=== PATIENT | male | born 1965 | race Caucasian/White ===

== ENCOUNTER → 2016-02-24 | Outpatient (CLI) | payer BC ==
[2016-02-26 14:31] LABS: PSA TOTAL 0.4 ng/mL (0.0-4.0)
== END ==
LOC: M WUC 17:30
PROVIDERS: ATTEND Nurse Practitioner Family
DX: Z12.5 Encounter for screening for malignant neoplasm of prostate (principal)

== ENCOUNTER → 2017-04-29 | Outpatient (CLI) | payer BC ==
[2017-04-29 08:50] LABS: BASO % 0.6 % (0.0-1.0); EOS # 0.1 10^3/uL (0.0-0.50); EOS % 1.6 % (0.0-3.0); HEMATOCRIT 43.2 % (42.0-52.0); HEMOGLOBIN 15.3 g/dl (14.0-18.0); IMMATURE GRANULOCYTE % 0.6 % (0-3.0); LYMPH # 1.9 10^3/uL (1.5-4.5); LYMPH % 30.6 % (24.0-44.0); MEAN CORPUSCULAR HEMOGLOBIN 31.2 pg (27.0-33.0); MEAN CORPUSCULAR HGB CONC 35.4 g/dl (32.0-36.5); MEAN CORPUSCULAR VOLUME 88.2 fl (80.0-96.0); MONO # 0.5 10^3/uL (0.0-0.8); MONO % 8.6 % (0.0-5.0); NEUTROPHILS # 3.6 10^3/uL (1.8-7.7); PLATELET COUNT, AUTOMATED 240 10^3/uL (150-450); RED CELL DISTRIBUTION WIDTH 12.4 % (11.5-14.5); WHITE BLOOD COUNT 6.3 10^3/uL (4.0-10.0)
[2017-04-29 09:24] LABS: ALBUMIN 3.8 GM/DL (3.2-5.2); ALBUMIN/GLOBULIN RATIO 1.36 (1.00-1.93); ALKALINE PHOSPHATASE 82 U/L (45-117); ALT/SGPT 44 U/L (12-78); ANION GAP 7 MEQ/L (8-16); AST/SGOT 26 U/L (7-37); BILIRUBIN,TOTAL 1.1 MG/DL (0.2-1.0); BLOOD UREA NITROGEN 22 MG/DL (7-18); CALCIUM LEVEL 8.6 MG/DL (8.5-10.1); CARBON DIOXIDE LEVEL 28 MEQ/L (21-32); CHLORIDE LEVEL 108 MEQ/L (98-107); CHOLESTEROL LEVEL 190 MG/DL (<200); CHOLESTEROL RISK RATIO 4.523 (<5); CREATININE FOR GFR 1.08 MG/DL (0.70-1.30); GLOMERULAR FILTRATION RATE > 60.0 (>60); GLUCOSE, FASTING 109 MG/DL (70-100); HDL CHOLESTEROL 42 MG/DL (>40); LDL CHOLESTEROL 125.4 MG/DL (<100); NON-HDL-C 148 MG/DL; POTASSIUM SERUM 4.5 MEQ/L (3.5-5.1); SODIUM LEVEL 143 MEQ/L (136-145); TOTAL PROTEIN 6.6 GM/DL (6.4-8.2); TRIGLYCERIDES LEVEL 113 MG/DL (<150)
[2017-04-30 15:19] LABS: PSA TOTAL 0.4 ng/mL (0.0-4.0)
== END ==
LOC: M WUC 08:04
DX: I10 Essential (primary) hypertension (principal); E78.5 Hyperlipidemia, unspecified; Z12.5 Encounter for screening for malignant neoplasm of prostate
CPT/HCPCS: 80053

== ENCOUNTER → 2017-08-23 | Outpatient (CLI) | payer BC | LOC: M ADAMS 08:45 | DX: S20.212A Contusion of left front wall of thorax, initial encounter (principal); X58.XXXA Exposure to other specified factors, initial encounter; Y92.89 Other specified places as the place of occurrence of the external cause | CPT/HCPCS: 71101 ==

== ENCOUNTER → 2018-04-05 | Outpatient (CLI) | payer BC | LOC: M ADAMS 17:31 | PROVIDERS: ATTEND Nurse Practitioner Family | DX: Z12.5 Encounter for screening for malignant neoplasm of prostate (principal); Z53.9 Procedure and treatment not carried out, unspecified reason ==

== ENCOUNTER → 2018-04-05 | Outpatient (REF) | payer BC ==
[2018-04-07 15:05] LABS: PSA TOTAL 0.5 ng/mL (0.0-4.0)
== END ==
LOC: M LABDRWAD 19:09
PROVIDERS: ATTEND Nurse Practitioner Family
DX: Z12.5 Encounter for screening for malignant neoplasm of prostate (principal)

== ENCOUNTER → 2018-07-20 | Outpatient (CLI) | payer BC ==
--- NOTE | 2018-07-20 21:29 | REP ---
Clinical: Dorsalgia Technique: AP and lateral views of the thoracic and lumbar spine. Six views total. Findings: The thoracic spine demonstrates normal alignment and kyphosis without acute fracture / compression injury, subluxation or significant degenerative changes. The lumbar spine and demonstrates moderate multilevel degenerative changes including endplate sclerosis, marginal spurring, disc space narrowing and hypertrophic facet changes. No acute fracture / compression injury. Minimal retrolisthesis of approximately 2-3 mm suggested at the L2-3 level and the L4-5 level. Impression: 1. Normal thoracic spine. 2. Moderate degenerative spondylosis involving the lumbar spine. Electronically Signed by Robert Gilmore MD 07/20/2018 09:20 P
== END ==
LOC: M ADAMS 18:31
PROVIDERS: ATTEND Nurse Practitioner Family
DX: M47.896 Other spondylosis, lumbar region (principal); M54.9 Dorsalgia, unspecified

== ENCOUNTER → 2019-12-22 | Outpatient (REF) | payer BC | LOC: M LABDRWAD 12:12 | PROVIDERS: ATTEND Family Medicine | DX: Z12.5 Encounter for screening for malignant neoplasm of prostate (principal) ==

== ENCOUNTER → 2020-02-01 | Outpatient (REF) | payer OTHER | LOC: M LABSMT 13:17 → M SFHCADAM 13:20 | PROVIDERS: ATTEND Nurse Practitioner Women's Health | DX: N50.89 Other specified disorders of the male genital organs (principal) ==

== ENCOUNTER 2020-12-09 09:10 | Emergency (ER) | payer BC, OTHER ==
[~2020-12-09] VITALS: Ht 177.8 cm; Wt 107.2 kg
--- OUTSIDE RECORDS SUMMARY | 2020-12-09 09:19 | CCD ---
Author Author [facility] Organization [facility] Address Unknown Phone Unavailable Care Team Providers Care Release Coordinator Name Role Phone Maria Victoria Noland MD Unavailable Unavailable Nuzhat, Maria Victoria Canales MD Unavailable Unavailable Nuzhat, Maria Victoria Canales MD Unavailable Unavailable Nuzhat, Maria Victoria Canales MD Unavailable Unavailable Nuzhat, Maria Victoria Canales MD Unavailable Unavailable Nuzhat, Maria Victoria Canales MD Unavailable Unavailable Nuzhat, Maria Victoria Canales MD Unavailable Unavailable Nuzhat, Maria Victoria Canales MD Unavailable Unavailable Nuzhat, Maria Victoria Canales MD Unavailable Unavailable Nuzhat, Maria Victoria Canales MD Unavailable Unavailable Nuzhat, Maria Victoria Canales MD Unavailable Unavailable Nuzhat, Maria Victoria Canales MD Unavailable Unavailable Nuzhat, Maria Victoria Canales MD Unavailable Unavailable Nuzhat, Maria Victoria Canales MD Unavailable Unavailable Nuzhat, Maria Victoria Canales MD Unavailable Unavailable Nuzhat, Maria Victoria Canales MD Unavailable Unavailable Nuzhat, Maria Victoria Canales MD Unavailable Unavailable Nuzhat, Maria Victoria Canales MD Unavailable Unavailable Nuzhat, Maria Victoria Canales MD Unavailable Unavailable Nuzhat, Maria Victoria Canales MD Unavailable Unavailable Nuzhat, Maria Victoria Canales MD Unavailable Unavailable Nuzhat, Maria Victoria Canales MD Unavailable Unavailable Nuzhat, Maria Victoria Canales MD Unavailable Unavailable Nuzhat, Maria Victoria Canales MD Unavailable Unavailable Nuzhat, Maria Victoria Canales MD Unavailable Unavailable Nuzhat, Maria Victoria Canales MD Unavailable Unavailable Nuzhat, Maria Victoria Canales MD Unavailable Unavailable Nuzhat, Maria Victoria Canales MD Unavailable Unavailable Nuzhat, Maria Victoria Canales MD Unavailable Unavailable Nuzhat, Maria Victoria Canales MD Unavailable Unavailable Nuzhat, Maria Victoria Canales MD Unavailable Unavailable Nuzhat, Maria Victoria Canales MD Unavailable Unavailable Nuzhat, A Parker MD Unavailable Unavailable Nuzhat, A Parker MD Unavailable Unavailable Nuzhat, A Parker MD Unavailable Unavailable Nuzhat, A Parker MD Unavailable Unavailable Nuzhat, A Parker MD Unavailable Unavailable Nuzhat, A Parker MD Unavailable Unavailable Nuzhat, A Parker MD Unavailable Unavailable Nuzhat, A Parker MD Unavailable Unavailable Nuzhat, A Parker MD Unavailable Unavailable Nuzhat, A Parker MD Unavailable Unavailable Nuzhat, A Parker MD Unavailable Unavailable Nuzhat, A Parker MD Unavailable Unavailable Nuzhat, A Parker MD Unavailable Unavailable Nuzhat, A Parker MD Unavailable Unavailable Nuzhat, A Parker MD Unavailable Unavailable Nuzhat, A Parker MD Unavailable Unavailable Nuzhat, A Parker MD Unavailable Unavailable Nuzhat, A Parker MD Unavailable Unavailable Nuzhat, A Parker MD Unavailable Unavailable Nuzhat, A Parker MD Unavailable Unavailable Nuzhat, A Parker MD Unavailable Unavailable Nuzhat, A Parker MD Unavailable Unavailable Nuzhat, A Parker MD Unavailable Unavailable Nuzhat, A Parker MD Unavailable Unavailable Nuzhat, A Parker MD Unavailable Unavailable Nuzhat, A Parker MD Unavailable Unavailable Nuzhat, A Parker MD Unavailable Unavailable Nuzhat, A Parker MD Unavailable Unavailable Nuzhat, A Parker MD Unavailable Unavailable Nuzhat, A Parker MD Unavailable Unavailable Nuzhat, A Parker MD Unavailable Unavailable Nuzhat, A Parker MD Unavailable Unavailable Nuzhat, A Parker MD Unavailable Unavailable Nuzhat, A Parker MD Unavailable Unavailable Nuzhat, A Parker MD Unavailable Unavailable Nuzhat, A Parker MD Unavailable Unavailable Nuzhat, A Parker MD Unavailable Unavailable Nuzhat, A Parker MD Unavailable Unavailable Nuzhat, A Parker MD Unavailable Unavailable Nuzhat, A Parker MD Unavailable Unavailable Nuzhat, A Parker MD Unavailable Unavailable Nuzhat, A Parker MD Unavailable Unavailable Nuzhat, A Parker MD Unavailable Unavailable Nuzhat, A Parker MD Unavailable Unavailable Nuzhat, A Parker MD Unavailable Unavailable Nuzhat, A Parker MD Unavailable Unavailable Nuzhat, A Parker MD Unavailable Unavailable Nuzhat, A Parker MD Unavailable Unavailable Nuzhat, A Parker MD Unavailable Unavailable Nuzhat, A Parker MD Unavailable Unavailable Nuzhat, A Parker MD Unavailable Unavailable Nuzhat, A Parker MD Unavailable Unavailable Nuzhat, A Parker MD Unavailable Unavailable Darin Zhang MD Unavailable Unavailable Darin Zhang MD Unavailable Unavailable Darin Zhang MD Unavailable Unavailable Chitnis, S Subhanir MD Unavailable Unavailable Chitnis, S Subhanir MD Unavailable Unavailable Chitnis, S Subhanir MD Unavailable Unavailable Chitnis, S Subhanir MD Unavailable Unavailable Chitnis, S Subhanir MD Unavailable Unavailable Nuzhat, A Parker MD Unavailable Unavailable Nuzhat, A Parker MD Unavailable Unavailable Nuzhat, A Parker MD Unavailable Unavailable Nuzhat, A Parker MD Unavailable Unavailable Nuzhat, A Parker MD Unavailable Unavailable Nuzhat, A Parker MD Unavailable Unavailable Nuzhat, A Parker MD Unavailable Unavailable Nuzhat, A Parker MD Unavailable Unavailable Nuzhat, A Parker MD Unavailable Unavailable Nuzhat, A Parker MD Unavailable Unavailable Nuzhat, A Parker MD Unavailable Unavailable Nuzhat, A Parker MD Unavailable Unavailable Nuzhat, A Parker MD Unavailable Unavailable Nuzhat, A Parker MD Unavailable Unavailable Nuzhat, A Parker MD Unavailable Unavailable Nuzhat, A Parker MD Unavailable Unavailable Nuzhat, A Parker MD Unavailable Unavailable Nuzhat, A Parker MD Unavailable Unavailable Nuzhat, A Parker MD Unavailable Unavailable Nuzhat, A Parker MD Unavailable Unavailable Nuzhat, A Parker MD Unavailable Unavailable Nuzhat, A Parker MD Unavailable Unavailable Nuzhat, A Parker MD Unavailable Unavailable Nuzhat, A Parker MD Unavailable Unavailable Nuzhat, A Parker MD Unavailable Unavailable Nuzhat, A Parker MD Unavailable Unavailable Nuzhat, A Parker MD Unavailable Unavailable Nuzhat, A Parker MD Unavailable Unavailable Nuzhat, A Parker MD Unavailable Unavailable Nuzhat, A Parker MD Unavailable Unavailable Nuzhat, A Parker MD Unavailable Unavailable Nuzhat, A Parker MD Unavailable Unavailable Nuzhat, A Parker MD Unavailable Unavailable Nuzhat, A Parker MD Unavailable Unavailable Nuzhat, A Parker MD Unavailable Unavailable Nuzhat, A Parker MD Unavailable Unavailable Nuzhat, A Parker MD Unavailable Unavailable Nuzhat, A Parker MD Unavailable Unavailable Nuzhat, A Parker MD Unavailable Unavailable Nuzhat, A Parker MD Unavailable Unavailable Nuzhat, A Parker MD Unavailable Unavailable Nuzhat, A Parker MD Unavailable Unavailable Nuzhat, A Parker MD Unavailable Unavailable Nuzhat, A Parker MD Unavailable Unavailable Nuzhat, A Parker MD Unavailable Unavailable Nuzhat, A Parker MD Unavailable Unavailable Nuzhat, A Parker MD Unavailable Unavailable Nuzhat, A Parker MD Unavailable Unavailable Nuzhat, A Parker MD Unavailable Unavailable Nuzhat, A Parker MD Unavailable Unavailable Nuzhat, A Parker MD Unavailable Unavailable Nuzhat, A Parker MD Unavailable Unavailable Nuzhat, A Parker MD Unavailable Unavailable Nuzhat, A Parker MD Unavailable Unavailable Nuzhat, A Parker MD Unavailable Unavailable Nuzhat, A Parker MD Unavailable Unavailable Nuzhat, A Parker MD Unavailable Unavailable Nuzhat, A Parker MD Unavailable Unavailable Nuzhat, A Parker MD Unavailable Unavailable Nuzhat, A Parker MD Unavailable Unavailable Nuzhat, A Parker MD Unavailable Unavailable Nuzhat, A Parker MD Unavailable Unavailable Nuzhat, A Parker MD Unavailable Unavailable Nuzhat, A Parker MD Unavailable Unavailable Nuzhat, A Parker MD Unavailable Unavailable Nuzhat, A Parker MD Unavailable Unavailable Nuzhat, A Parker MD Unavailable Unavailable Nuzhat, A Parker MD Unavailable Unavailable Nuzhat, A Parker MD Unavailable Unavailable Nuzhat, A Parker MD Unavailable Unavailable Nuzhat, A Parker MD Unavailable Unavailable Nuzhat, A Parker MD Unavailable Unavailable Nuzhat, A Parker MD Unavailable Unavailable Nuzhat, A Parker MD Unavailable Unavailable Nuzhat, A Parker MD Unavailable Unavailable Nuzhat, A Parker MD Unavailable Unavailable Nuzhat, A Parker MD Unavailable Unavailable Nuzhat, A Parker MD Unavailable Unavailable Nuzhat, A Parker MD Unavailable Unavailable Nuzhat, A Parker MD Unavailable Unavailable Nuzhat, A Parker MD Unavailable Unavailable Nuzhat, A Parker MD Unavailable Unavailable Nuzhat, A Parker MD Unavailable Unavailable Nuzhat, A Parker MD Unavailable Unavailable Nuzhat, A Parker MD Unavailable Unavailable Re-disclosure Warning The records that you are about to access may contain information from federally-assisted alcohol or drug abuse programs. If such information is present, then the following federally mandated warning applies: This information has been disclosed to you from records protected by federal confidentiality rules (42 CFR part 2). The federal rules prohibit you from making any further disclosure of this information unless further disclosure is expressly permitted by the written consent of the person to whom it pertains or as otherwise permitted by 42 CFR part 2. A general authorization for the release of medical or other information is NOT sufficient for this purpose. The Federal rules restrict any use of the information to criminally investigate or prosecute any alcohol or drug abuse patient.The records that you are about to access may contain highly sensitive health information, the redisclosure of which is protected by Article 27-F of the [facility] Public Health law. If you continue you may have access to information: Regarding HIV / AIDS; Provided by facilities licensed or operated by the [facility] Office of Mental Health; or Provided by the [facility] Office for People With Developmental Disabilities. If such information is present, then the following [facility] mandated warning applies: This information has been disclosed to you from confidential records which are protected by state law. State law prohibits you from making any further disclosure of this information without the specific written consent of the person to whom it pertains, or as otherwise permitted by law. Any unauthorized further disclosure in violation of state law may result in a fine or group home sentence or both. A general authorization for the release of medical or other information is NOT sufficient authorization for further disc losure. Family History Family Member Name Family Member Gender Family Member Status Date o f Status Description Data Source(s) Unknown Unknown Problem [facility] ([facility]) mother Encounters Encounter Providers Location Date Indications Data Source(s ) Outpatient Attender: Parker Begum 08/05/2020 03:00:00 P M EDT [facility] ([facility]) Outpatient [address] [facility] [id number] 04/29/2020 12:00:00 AM EDT eCW1 ([facility]) Outpatient Admitter: Parker Noland MDReferrer: Parker Noland MD MOB-MOB.PAT 04/08/2020 08:07:07 AM EST - 04/08/2020 08:22:51 AM EST [facility] Outpatient Attender: Parker Harmon rona: Nancy Zhang MDAdmitter: Parker Noland MD [email or web address] 04/03/2020 08:05:11 AM EST - 04/12/2020 01:48:00 PM EST [facility] Patient discharged. Outpatient Attender: Parker Begum 03/29/2020 02:00:00 P M EST [facility]) Unknown [address] [facility] [id number] 03/26/2020 12:00:00 AM EST eCW1 ([facility]) Unknown [address] [facility] [place] [address] 02/12/2020 12:00:00 AM EST eCW1 ([facility]) [place] [address] [facility] [place] [address] 01/31/2020 12:00:00 AM EST eCW1 ([facility]) Immunizations Vaccine Date Status Description Data Source(s) COVID-19 VACCINE Pfizer 05/15/2020 12:00:00 AM EDT completed [facility] Vaccine Series Complete: YESThis Data wa s Submitted to [facility]. COVID-19 VACCINE Pfizer 04/24/2020 12:00:00 AM EST completed [place] Vaccine Series Complete: NOThis Data was Submitted to [facility]. Medications Medication Brand Name Start Date Product Form Dose Route Admi nistrative Instructions Pharmacy Instructions Status Indications Reaction Description Data Source(s) 25 mg 10/25/2020 12:00:00 AM EDT tablet 90 TAKE ONE TABLET BY MOUTH EVERY DAY TAKE ONE TABLET BY MOUTH EVERY DAY SOLD: 10/27/2020 [facility] 0.1 % 09/17/2020 12:00:00 AM EDT cream 45 APPLY TO INFRAPANNICULAR FOLD TWO TIMES A DAY FOR 14 DAYS FOR FLARES FOR INVERSE PSORIASIS APPLY TO INFRAPANNICULAR FOLD TWO TIMES A DAY FOR 14 DAYS FOR FLARES FOR INVERSE PSORIASIS SOLD: 09/20/2020 [facility] 0.2 % 09/03/2020 12:00:00 AM EDT cream 60 APPLY TWO TIMES A DAY FOR 14 DAYS,THEN ONCE DAILY DERMATITIS MIX 1:1 WITH NYSTATIN CREAM APPLY TWO TIMES A DAY FOR 14 DAYS,THEN ONCE DAILY DERMATITIS MIX 1:1 WITH NYSTATIN CREAM SOLD: 09/04/2020 [facility] 100,000 unit/gram 09/03/2020 12:00:00 AM EDT cream 30 APPLY TWO TIMES A DAY FOR 14 DAYS THEN DAILY NEEDED FOR DERMATITIS MIX 1:1 WITH HYDROCORTISONE CREAM APPLY TWO TIMES A DAY FOR 14 DAYS THEN D AILY NEEDED FOR DERMATITIS MIX 1:1 WITH HYDROCORTISONE CREAM SOLD: 09/04/2020 [facility] 2 % 07/31/2020 12:00:00 AM EDT cream 60 APPLY TO AFFECTED AREAS TWO TIMES A DAY FOR 4 WEEKS FOR TINEA CORPORIS APPLY TO AFFECTED AREAS TWO TIMES A DAY FOR 4 WEEKS FOR TINEA CORPORIS SOLD: 08/01/2020 [facility] Diazepam 5 MG Oral Tablet [Valium] Valium 07/04/2020 12:00:00 AM EDT ORAL active [facility] ([facility]) 5 mg 07/04/2020 12:00:00 AM EDT tablet 30 TAKE ONE TABLET FOR PAIN EVERY NIGHT AT BEDTIME MAXIMUM DAILY DOSE = 1 TAKE ONE TABLET FOR PAIN EVERY NIGHT AT BEDTIME MAXIMUM DAILY DOSE = 1 SOLD: 07/05/2020 [facility] Multi Vitamin 04/24/2020 12:00:00 AM EST acti ve MEDENT ([facility]) Cholecalciferol 2000 UNT Oral Tablet Vitamin D 04/24/2020 12:00:00 AM EST active [facility] ([facility]) Atenolol 25 MG Oral Tablet ATENOLOL 04/16/2020 12:00:00 AM EST tablet 90 TAKE ONE TABLET BY MOUTH EVERY DAY TAKE ONE TABLET BY MOUTH EVERY DAY SOLD: 04/21/2020 [facility] Atenolol 25 MG Oral Tablet ATENOLOL 04/16/2020 12:00:00 AM EST tablet 90 TAKE ONE TABLET BY MOUTH EVERY DAY TAKE ONE TABLET BY MOUTH EVERY DAY SOLD: 07/18/2020 [facility] 140-9-5.2 gram 03/30/2020 12:00:00 AM EST powder in packet, sequential 3 DO NOT FOLLOW DIRECTIONS ON BOX - FOLLOW DIRECTIONS GIVEN BY DR DUMONT DO NOT FOLLOW DIRECTIONS ON BOX - FOLLOW DIRECTIONS GIVEN BY DR DUMONT SOLD: 04/05/2020 [facility] Plenvu Plenvu 03/29/2020 12:00:00 AM EST active [facility] ([facility]) 25 mg 11/01/2019 12:00:00 AM EDT tablet 90 TAKE ONE TABLET BY MOUTH EVERY DAY TAKE ONE TABLET BY MOUTH EVERY DAY SOLD: 01/19/2020 [facility] 25 mg 11/01/2019 12:00:00 AM EDT tablet 90 TAKE ONE TABLET BY MOUTH EVERY DAY TAKE ONE TABLET BY MOUTH EVERY DAY SOLD: 11/06/2019 [facility] [employer] Insurance Providers Payer name Policy type / Coverage type Policy ID Covered libertarian ID Covered libertarian's relationship to fuentes Policy Fu[place] Plan Information [employer] [place]/307 [id number] SP [id number] [place] [place]/307 [id number] SP [id number] [place]/307 [id number] SP [id number] BC EXC PLANS 1 [id number] EXCELLUS H [id number] Self [id number] [employer] [place]/307 [id number] SP [id number] EXCELLUS BCBS [id number] Shereen VYS [id number] EXCELLUS BCBS [id number] Shereen VYS [id number] EXCELLUS BCBS [id number] Shereen VYS [id number] EXCELLUS BCBS [id number] Shereen VYA [id number] EXCELLUS H [id number] Self [id number] EXCELLUS BCBS [id number] [phone] [id number] EXCELLUS BCBS [id number] Shereen VYA [id number] EXCELLUS BCBS [id number] Shereen VYA [id number] INSURANCE COVID-19 COVID Shereen C OVID INSURANCE COVID-19 [id number] [employer] [id number] SP [id number] [place] [place]/307 [id number] SP [id number] EXCELLUS BCBS B [id number] S VYA [id number] BCBS/[employer] [id number] Self [id number] SELF PAY 2 UNAVAILABLE 1 UNAVAILA BLE HMO BLUE [id number] SP [id number] [employer] [place] P[place] 302/307 [id number] SP [id number] Problems, Conditions, and Diagnoses Code Display Name Description Problem Type Effective Dates Data Source(s) Z86.010 Personal history of colonic polyps Personal hist ory of colonic polyps Diagnosis 04/12/2020 10:59:00 AM EST [facility] U07.1 COVID-19 COVID-19 Diagnosis 04/08/2020 08:07:07 AM ES T [facility] N50.3 Epididymal cyst Epididymal cyst Problem 04/29/2020 12:0 0:00 AM EDT eCW1 ([facility]) N50.89 Other specified disorders of the male ge nital organs Testicular calcification Problem 04/29/2020 12:00:00 AM EDT eCW1 ([facility]) [id number] Essential hypertension Essential hypertension Problem 04/24/2020 12:00:00 AM EST [facility] ([facility]) K62.89 Rectal pain Rectal pain Problem 03/29/2020 12:00:00 AM EST [facility] ([facility]) Surgeries/Procedures Procedure Description Date Indications Data Source(s) ANOSCOPY DX W/WO COLLJ SPEC BR/WA SPX 07/04/2020 12:00 :00 AM EDT [facility] ([facility]) COLSC FLX PROX SPLENIC FLXR RMVL LES CAUT 04/12/2020 1 2:00:00 AM EST [facility] ([facility]) COLSC FLX PROX SPLENIC FLXR RMVL LES SNARE TQ 04/12/19 21 12:00:00 AM EST [facility] ([facility]) ANOSCOPY DX W/WO COLLJ SPEC BR/WA SPX 03/29/2020 12:00 :00 AM EST [facility] ([facility]) Results ID Date Data Source [id number] 04/19/2020 06:25:27 AM EST [facility] [address] [address]Ttk# Surgical Pathology ReportPatient Name: KEI THOMPSON: 1965Accession #:[id number](s) ReceivedA: Cecal polypB: Sigmoid polyp 35mmClinical Diagnosis and HistoryColon polyps DIAGNOSISA. CECUM, BIOPSY: TINY FRAGMENT OF COLONIC MUCOSA WITH NO SIGNIFICANT HISTOPATHOLOGIC ABNORMALITIES B. SIGMOID COLON, BIOPSY: TUBULOVILLOUS ADENOMA Gross DescriptionPart A. Received in formalin labeled "cecal polyp" is a 0.2 cm garcia-pinkpolypoid fragment of tissue. Entirely submitted as A1. 1 + 1. Additional levels times two. Part B. Received in formalin labeled "sigmoid polyp 35 mm" is a 1.2 x 0.9x 0.6 cm red- purple lobulated polypoid fragment of tissue with a 0.2 cm inlength x 0.3 cm in diameter stalk. The specimen is inked blue along thepoint of attachment, bisected, and entirely submitted as B1. 1 + 1.CommentsSlides are reviewed by one other pathologist who concurs with thediagnosis. [email or web address] Reported: 04/19/2020Electronically Signed Out By Cathy Flores M.D. [facility] [place] [id number] component performed at [facility]Hidden[facility]ST[facility], Histopathology, [address] [place] [address], [phone].Reported at [facility] [email or web address] [facility], [address] [place] [address], [phone]. This report may includeimmunohistochemical or in-situ hybridization results. Testing wasdeveloped and the performance characteristics determined by [employer] as required by CLIA '88. The FDA hasdetermined that approval for specific use is not necessary for clinicaluse. The quality of Hematoxylin and Eosin stains and as applicable, forall immunohistochemical and/or special stains, including positive andnegative controls, were reviewed and considered appropriate.ICD codes K63.5CPT codesA: 78303KT: 44477T Name Value Range Interpretation Code Description Data Priya rce(s) Supporting Document(s) ID Date Data Source [id number] 04/12/2020 12:53:09 PM EST [facility] NT INFORMATIONPatient MRN Name Date of Age Gend*PT [id number] Kei Thompson 1965 54 years M OPPT Location Admission Date/Time [facility] [place] [facility]12[facility]20 1059 --- Parker Noland MD([id number]) EPI ID CSN Admitting Provider [id number] Parker Noland MD([id number])Colonoscopy Procedure NotePatient: Kei ThompsonSurgery Date: 04/12/2020urgeon(s):MEIR Chahalre-procedure Diagnosis:ScreeningPost-procedure DiagnosisScreening,PolypASA Class: IIIProcedure: Colonoscopy with polypectomySedation:Department of AnesthesiaProcedure Details:The patient was monitored per endoscopy protocol. The colonoscope was advancedunder direct visualization to the cecum. The quality of the colonic preparationwas adequate. A careful inspection was made as the colonoscope was withdrawn.Examination of the colon revealed a small polyp in the cecum that was treated byhot biopsy polypectomy and a large polyp in the sigmoid (35cm) that was treatedby snare polypectomy. The polypectomy sites appeared to have no problems withhemostasis and no evidence of excessive thermal injury. After completion of theexamination, the patient was transferred to the recovery room in stablecondition.Specimens:* No orders in the log *Impression:PolypsPlan: Repeat exam in 5 yearsParker Noland MD112:51 PM Name Value Range Interpretation Code Description Data Priya rce(s) Supporting Document(s) ID Date Data Source [id number] 04/11/2020 12:00:00 AM EST [facility] Patricia Truong Np Patient Name: KEI THOMPSON[address] Date of : 1965[address] Date of Exam: [facility]/2020[facility] [id number] Fax: [phone] EXAM: US SCROTUM & CONTENTSCLINICAL INFORMATION: Followup unspecified disorders of the male genitalorgans.Comparison 12/21/2019.Realtime sonographic evaluation of the scrotum and contents performed.The right testicle measures 4.3 x 2.3 x 2.8 cm and left testicle 4.2 x 2.1x 2.5 cm. Tiny calcifications are again seen throughout both testicleswith no testicular mass or torsion. Blood flow was seen in each testiclewith duplex Doppler evaluation. In the head of the left epididymis thereappear to be two complex cysts which each measure 9 mm in diameter. Nosignificant hydrocele is seen.IMPRESSION:Testicular microlithiasis. This indicates increased risk for cancer; andtherefore, yearly screening scrotal ultrasound is recommended. There is nocurrent evidence of testicular mass.Two complex cysts are seen in the head of the left epididymis bothmeasuring 9 mm in diameter.Accredited by the [employer] in General Ultrasound.FABIENNE Alcala/Ilya you for referring KEI THOMPSON to our office. Electronically Signed - RIKI DAMON MD 04/11/20 13:02 Name Value Range Interpretation Code Description Data Priya rce(s) Supporting Document(s) ID Date Data Source [id number] 04/08/2020 08:40:00 AM EST [facility] Name Value Range Interpretation Code Description Data Priya rce(s) Supporting Document(s) SARS coronavirus 2 RNA Not Detected [facility] [place] This lab was ordered by [facility] and reported by [email or web address]. ID Date Data Source [id number] 04/09/2020 06:09:38 PM EST [facility] Name Value Range Interpretation Code Description Data Priya rce(s) Supporting Document(s) SARS-COV-2 JUAN LUIS [facility] Not DetectedReference range: Not Detecte d This nucleic acid amplification test was developed and its performance characteristics determined by [employer]. Nucleic acid amplification tests include RT-PCR and TMA. This test has not been FDA cleared or approved. This test has been authorized by FDA under an Emergency Use Authorization (EUA). This test is only authorized for the duration of time the declaration that circumstances exist justifying the authorization of the emergency use of in vitro diagnostic tests for detection of SARS-CoV-2 virus and/or diagnosis of COVID-19 infection under section 564(b)(1) of the Act, 21 U.S.C. 360bbb-3(b) (1), unless the authorization is terminated or revoked sooner. When diagnostic testing is negative, the possibility of a false negative result should be considered in the context of a patient's recent exposures and the presence of clinical signs and symptoms consistent with COVID- 19. An individual without symptoms of COVID- 19 and who is not shedding S ARS-CoV-2 virus would expect to have a negative (not detected) result in this assay. Performed At: [employer] [address] [place], [place] [id number] Omar Irene PhD Ph:[phone] ID Date Data Source LDH LACTATE DEHYDROGENASE 02/01/2020 12:00:00 AM EST eCW1 ([facility]) Name Value Range Interpretation Code Description Data Priya rce(s) Supporting Document(s) 161 [id number] LDH LACTATE DEHYDROGENASE eCW1 ([facility]) ID Date Data Source ALPHA FETOPROTEIN TUMOR QUANT 02/01/2020 12:00:00 AM EST eCW 1 ([facility]) Name Value Range Interpretation Code Description Data Priya rce(s) Supporting Document(s) 5.2 <8.1 ALPHA FETOPROTEIN TUMOR Q UANT eCW1 ([facility]) ID Date Data Source [id number] 12/21/2019 12:00:00 AM EST [facility] Raheem Mcdonnell MD Patient Name: CHANCE THOMPSON [facility] Date of : 1965[address] Date of Exam: 12/21/2019RENETTA Garcia [id number]#: Fax: [phone] EXAM: US SCROTUM & CONTENTSCLINICAL INFORMATION: Left testicular pain.There are no prior testicular ultrasounds for comparison.The right testicle measures 4.2 x 2.4 x 3.1 cm. The left testicle measures4.3 x 1.7 x 3 cm. There is bilateral testicular microlithiasis. There areno solid masses in either testicle. The testicular vascular pattern iswithin normal limits bilaterally with a right testicular TI of .63 and aleft of .53.There is a minimal hydrocele bilaterally.With the left epididymis, there is a small solid hypoechoic 9 mm sizedfocus.IMPRESSION:1. Bilateral testicular microlithiasis. This needs followup.2. Small solid nodule in the left epididymis in the region of the head.This needs to be correlated clinically with appropriate followup. Thismight represent a true mass or could be the sequelae of an old infection.Urological consultation should be considered.3. Small bilateral hydroceles.4. Evidence of a slight left-sided varicocele and indeterminate possibleright-sided varicocele.Accredited by the [employer] in General Ultrasound.ZA Bonner/Ilya you for referring KEI THOMPSON to our office. Electronically Signed - MARCO A WAGNER DO 12/22/19 17:07 Name Value Range Interpretation Code Description Data Priya rce(s) Supporting Document(s) Procedure Social History Code Duration Value Status Description Data Source(s ) Smoking 04/29/2020 12:00:00 AM EDT Never Smoker completed Never S moker eCW1 ([facility]) Alcohol intake 04/12/2020 12:00:00 AM EST Yes completed [facility] Smoking 04/12/2020 12:00:00 AM EST Never smoker completed Never s moker [facility] Smoking 01/31/2020 12:00:00 AM EST Never Smoker completed Never S moker eCW1 ([facility]) Smoking 01/31/2020 12:00:00 AM EST Never Smoker completed Never S moker eCW1 ([facility]) Smoking 01/31/2020 12:00:00 AM EST Never Smoker completed Never S moker eCW1 ([facility]) Vital Signs ID Date Data Source UNK Name Value Range Interpretation Code Description Data Source(s) Systolic blood pressure 120 mm[Hg] 120 mm[Hg] M EDENT ([facility]) Diastolic blood pressure 73 mm[Hg] 73 mm[Hg] MEDENT ([facility]) Heart rate 75 /min 75 /min MEDENT ([facility]) Body temperature 97.0 [degF] 97.0 [degF] MEDENT ([facility]) Respiratory rate 12 /min 12 /min MEDENT ( [facility]) Body height 70 [in_i] 70 [in_i] MEDENT ([facility]) 5'10" Body weight 248.00 [lb_av] 248.00 [lb_av] MEDEN T ([facility]) Body mass index (BMI) [Ratio] 35.6 kg/m2 35.6 k g/m2 MEDENT ([facility]) Systolic blood pressure 153 mm[Hg] 153 mm[Hg] M EDENT ([facility]) Diastolic blood pressure 99 mm[Hg] 99 mm[Hg] MEDENT ([facility]) Heart rate 74 /min 74 /min MEDENT ([facility]) Body temperature 97.3 [degF] 97.3 [degF] MEDENT ([facility]) Respiratory rate 16 /min 16 /min MEDENT ( [facility]) Body height 70 [in_i] 70 [in_i] MEDENT ([facility]) 5'10" Body weight 248.00 [lb_av] 248.00 [lb_av] MEDEN T ([facility]) Body mass index (BMI) [Ratio] 35.6 kg/m2 35.6 k g/m2 MEDENT ([facility]) Body weight 253 [lb_av] 253 [lb_av] eCW1 ([facility]) Body height 70 [in_i] 70 [in_i] eCW1 ([facility]) Body mass index (BMI) [Ratio] 36.30 kg/m2 36.30 kg/m2 eCW1 ([facility]) Heart rate 68 /min 68 /min eCW1 ([facility]) Respiratory rate 18 /min 18 /min eCW1 ([facility]) Body temperature 98.5 [degF] 98.5 [degF] eCW1 ( [facility]) Systolic blood pressure 126 mm[Hg] 126 mm[Hg] e CW1 ([facility]) Diastolic blood pressure 88 mm[Hg] 88 mm[Hg] eCW1 ([facility]) Systolic blood pressure 146 mm[Hg] 146 mm[Hg] [facility] Diastolic blood pressure 87 mm[Hg] 87 mm[Hg] [facility] Body temperature 36.5 Zunilda 36.5 Zunilda [facility] Respiratory rate 16 /min 16 /min [facility] Oxygen saturation in Arterial blood by Pulse oximetry 99 % 99 % [facility] Body mass index (BMI) [Ratio] 35.15 kg/m2 35.15 kg/m2 [facility] Heart rate 67 /min 67 /min [facility] Body height 177.8 cm 177.8 cm [facility] Body weight 111.131 kg 111.131 kg [facility] Body temperature 97.8 [degF] 97.8 [degF] MEDENT ([facility]) Respiratory rate 18 /min 18 /min MED[facility] ( [facility]) Systolic blood pressure 139 mm[Hg] 139 mm[Hg] M EDENT ([facility]) Diastolic blood pressure 93 mm[Hg] 93 mm[Hg] MEDENT ([facility]) Body weight 248.00 [lb_av] 248.00 [lb_av] MEDEN T ([facility]) Body mass index (BMI) [Ratio] 35.6 kg/m2 35.6 k g/m2 MEDENT ([facility]) Heart rate 80 /min 80 /min MED[facility] ([facility]) Body temperature 97.8 [degF] 97.8 [degF] MEDENT ([facility]) Respiratory rate 18 /min 18 /min MED[facility] ( [facility]) Body height 70 [in_i] 70 [in_i] MEDENT ([facility]) 5'10" Body weight 250 [lb_av] 250 [lb_av] eCW1 ([facility]) Body height 70 [in_i] 70 [in_i] eCW1 ([facility]) Body mass index (BMI) [Ratio] 35.87 kg/m2 35.87 kg/m2 eCW1 ([facility]) Heart rate 18 /min 18 /min eCW1 ([facility]) Respiratory rate 69 /min 69 /min eCW1 ([facility]) Body temperature 96.8 [degF] 96.8 [degF] eCW1 ( [facility]) Systolic blood pressure 132 mm[Hg] 132 mm[Hg] e CW1 ([facility]) Diastolic blood pressure 86 mm[Hg] 86 mm[Hg] eCW1 ([facility])
[2020-12-09] MEDS ORDERED: ATEN25TA (09:50)
[2020-12-09] MEDS ORDERED: DOXYCYCLINE HYCLATE 100MG TABLET PO ONE (11:50)
[2020-12-09 12:11] LABS: BASO # 0.1 10^3/uL (0.0-0.2); BASO % 0.4 % (0.0-1.0); EOS # 0.1 10^3/uL (0.0-0.5); HEMATOCRIT 46.5 % (42.0-52.0); HEMOGLOBIN 16.2 g/dl (13.5-17.5); LYMPH # 1.9 10^3/uL (1.5-5.0); LYMPH % 16.2 % (24.0-44.0); MEAN CORPUSCULAR HEMOGLOBIN 31.6 pg (27.0-33.0); MEAN CORPUSCULAR HGB CONC 34.8 g/dl (32.0-36.5); MEAN CORPUSCULAR VOLUME 90.8 fl (80.0-96.0); MONO # 0.8 10^3/uL (0.0-0.8); MONO % 7.2 % (2.0-8.0); NEUTROPHILS # 8.6 10^3/uL (1.5-8.5); NEUTROPHILS % 74.7 % (36.0-66.0); PLATELET COUNT, AUTOMATED 245 10^3/uL (150-450); RED BLOOD COUNT 5.12 10^6/uL (4.30-6.10); WHITE BLOOD COUNT 11.5 10^3/uL (4.0-10.0)
--- OUTSIDE RECORDS SUMMARY | 2020-12-09 12:35 | CCD ---
Author Author [facility] Organization [facility] Address Unknown Phone Unavailable Care Team Providers Care Levi Maker Name Role Phone Maria Victoria Noland MD [...] Victoria Canales MD Unavailable Unavailable Nuzhat, Maria iVctoria Canales MD Unavailable Unavailable Nuzhat, Maria Victoria [...] A Parker MD Unavailable Unavailable Nuzhat, A Parekr MD Unavailable Unavailable Nuzhat, A Parker MD [...] A Parker MD Unavailable Unavailable Nuzhat, A Aprker MD Unavailable Unavailable Nuzhat, A Parker MD [...] is protected by Article 27-F of the [facility] Public Health law. If you continue you may have access to information: Regarding HIV / AIDS; Provided by facilities licensed or operated by the [facility] Office of Mental Health; or Provided by the [facility] Office for People With Developmental Disabilities. If such information is present, then the following [facility] mandated warning applies: This information has [...] law may result in a fine or shelter sentence or both. A general authorization for [...] ([facility] Outpatient [address] [facility] [id number] 04/29/2020 12:00:00 AM EDT eCW1 ([facility]) Outpatient Admitter: Parker Noland MDReferrer: Parker Noland MD MOB-MOB.PAT 04/08/2020 08:07:07 AM EST - 04/08/2020 08:22:51 AM EST [facility] Outpatient Attender: Parker Harmon rona: Nancy Zhang MDAdmitter: Parker Noland MD [email or web address].EU 04/03/2020 08:05:11 AM EST - 04/12/2020 01:48:00 PM EST [facility] Patient discharged. Outpatient Attender: Parker Begum 03/29/2020 02:00:00 P M EST MEDENT ([facility]) Unknown [address] [facility] [id number] 03/26/2020 12:00:00 AM EST eCW1 ([facility]) Unknown [address] [facility] [place] [address] 02/12/2020 12:00:00 AM EST eCW1 ([facility]) Outpatient [address] [facility] [address] [place] [address] 01/31/2020 12:00:00 AM EST eCW1 ([facility]) Immunizations Vaccine Date Status Description Data Source(s) COVID-19 VACCINE Pfizer 05/15/2020 12:00:00 AM EDT completed [facility] Vaccine Series Complete: YESThis Data wa s Submitted to [facility] Via [employer]. COVID-19 VACCINE Pfizer 04/24/2020 12:00:00 AM EST completed [facility] Vaccine Series Complete: NOThis Data was Submitted to [facility] Via [employer]. Medications Medication Brand Name Start Date Product [...] 4 WEEKS FOR TINEA CORPORIS SOLD: 08/01/2020 [employer] Diazepam 5 MG Oral Tablet [Valium] Valium 07/04/2020 12:00:00 AM EDT ORAL active MEDENT ([facility]) 5 mg 07/04/2020 12:00:00 AM EDT tablet 30 TAKE ONE TABLET FOR PAIN EVERY NIGHT AT BEDTIME MAXIMUM DAILY DOSE = 1 TAKE ONE TABLET FOR PAIN EVERY NIGHT AT BEDTIME MAXIMUM DAILY DOSE = 1 SOLD: 07/05/2020 [employer] Multi Vitamin 04/24/2020 12:00:00 AM EST acti ve MEDENT ([facility]) Cholecalciferol 2000 UNT Oral Tablet Vitamin D 04/24/2020 12:00:00 AM EST active MEDENT ([facility]) Atenolol 25 MG Oral Tablet ATENOLOL 04/16/2020 12:00:00 AM EST tablet 90 TAKE ONE TABLET BY MOUTH EVERY DAY TAKE ONE TABLET BY MOUTH EVERY DAY SOLD: 04/21/2020 [employer] Atenolol 25 MG Oral Tablet ATENOLOL 04/16/2020 12:00:00 AM EST tablet 90 TAKE ONE TABLET BY MOUTH EVERY DAY TAKE ONE TABLET BY MOUTH EVERY DAY SOLD: 07/18/2020 [employer] 140-9-5.2 gram 03/30/2020 12:00:00 AM EST powder in packet, sequential 3 DO NOT FOLLOW DIRECTIONS ON BOX - FOLLOW DIRECTIONS GIVEN BY DR DUMONT DO NOT FOLLOW DIRECTIONS ON BOX - FOLLOW DIRECTIONS GIVEN BY DR DUMONT SOLD: 04/05/2020 [employer] Plenvu Plenvu 03/29/2020 12:00:00 AM EST active MEDENT ([facility]) 25 mg 11/01/2019 12:00:00 AM EDT tablet 90 TAKE ONE TABLET BY MOUTH EVERY DAY TAKE ONE TABLET BY MOUTH EVERY DAY SOLD: 01/19/2020 [facility] 25 mg 11/01/2019 12:00:00 AM EDT tablet 90 TAKE ONE TABLET BY MOUTH EVERY DAY TAKE ONE TABLET BY MOUTH EVERY DAY SOLD: 11/06/2019 [employer] Insurance Providers Payer name Policy type / Coverage type Policy ID Covered democrat ID Covered democrat's relationship to fuentes Policy Fuentes Plan Information [employer] [place]/307 [id number] SP [id number] [place] [place]/307 [id number] SP [id number] [place]/307 [id number] SP [id number] BC EXC PLANS 1 [id number] EXCELLUS H [id number] Self [id number] [employer] [place] P[place] 302/307 [id number] SP [id number] EXCELLUS BCBS [id number] Shereen VYS [id number] EXCELLUS BCBS [id number] Shereen VYS [id number] EXCELLUS BCBS [id number] Shereen VYS [id number] EXCELLUS BCBS [id number] Shereen VYA [id number] EXCELLUS H [id number] Self [id number] EXCELLUS BCBS [id number] [phone] [id number] EXCELLUS BCBS [id number] Shereen VYA [id number] EXCELLUS BCBS [id number] Shereen VYA [id number] INSURANCE COVID-19 COVID Shereen C OVID INSURANCE COVID-19 [id number] [id number] [employer] [id number] SP [id number] [place] PPO 302/307 [id number] SP [id number] EXCELLUS BCBS B [id number] S VYA [id number] [employer] [id number] Self [id number] SELF PAY 2 UNAVAILABLE 1 UNAVAILA BLE HMO BLUE [id number] SP [id number] [employer] [place] PPO 302/307 [id number] SP [id number] Problems, Conditions, and Diagnoses Code Display Name Description Problem Type Effective Dates Data Source(s) Z86.010 Personal history of colonic polyps Personal hist ory of colonic polyps Diagnosis 04/12/2020 10:59:00 AM EST [facility] U07.1 COVID-19 COVID-19 Diagnosis 04/08/2020 08:07:07 AM ES T [facility] N50.3 Epididymal cyst Epididymal cyst Problem 04/29/2020 12:0 0:00 AM EDT eCW1 ([facility]) N50.89 Other specified disorders of the male ge nital organs Testicular calcification Problem 04/29/2020 12:00:00 AM EDT eCW1 ([facility]) [id number] Essential hypertension Essential hypertension Problem 04/24/2020 12:00:00 [...] [facility]) Results ID Date Data Source [id number] 04/19/2020 06:25:27 AM EST [facility] [address] [id number]# Surgical Pathology ReportPatient Name: KEI THOMPSON: 1965Accession [...] 04/19/2020Electronically Signed Out By Cathy Flores M.D. [facility] [place] [address] 24327mviMelijsnoj component performed at [employer] [facility], Histopathology, [address] [place] [address], [phone].Reported at [facility], [address] [place] [address], [phone]. This report may includeimmunohistochemical or in-situ hybridization results. Testing wasdeveloped and the performance characteristics determined by [employer] as required by CLIA '88. The FDA hasdetermined that approval for specific use is not necessary for clinicaluse. The quality of Hematoxylin and Eosin stains and as applicable, forall immunohistochemical and/or special stains, including positive andnegative controls, were reviewed and considered appropriate.ICD codes K63.5CPT codesA: 32110GR: 79716O Name Value Range Interpretation Code Description Data Priya rce(s) Supporting Document(s) ID Date Data Source [id number] 04/12/2020 12:53:09 PM EST [facility] NT INFORMATIONPatient MRN Name Date of Age Gend*PT [id number] Kei Thompson 1965 54 years M OPPT Location Admission Date/Time Visit [facility] [place] [facility]20 1059 --- Parker Noland MD([id number]) EPI ID CSN Admitting Provider [id number] Parker Noland MD([id number])Colonoscopy Procedure NotePatient: Kei ThompsonSurgery Date: 04/12/2020urgeon(s):MEIR Chahalre-procedure [...] rce(s) Supporting Document(s) ID Date Data Source [id number] 04/11/2020 12:00:00 AM EST [facility] Patricia Truong Np Patient Name: KEI THOMPSON[address] Date of : 1965[address] [facility]: [facility] [id number] Fax: [phone] EXAM: US SCROTUM & CONTENTSCLINICAL [...] bothmeasuring 9 mm in diameter.Accredited by the [place] [employer] in General Ultrasound.FABIENNE Alcala/Ilya you for referring KEI THOMPSON to our office. Electronically Signed - RIKI DAMON MD 04/11/20 13:02 Name Value Range Interpretation Code Description Data Priya rce(s) Supporting Document(s) ID Date Data Source [id number] 04/08/2020 08:40:00 AM EST [facility] Name Value Range Interpretation Code Description Data Priya rce(s) Supporting Document(s) SARS coronavirus 2 RNA Not Detected [facility] This lab was ordered by [facility] and reported by [employer]. ID Date Data Source [id number] 04/09/2020 06:09:38 PM EST [facility] Name Value Range Interpretation Code Description Data Priya rce(s) Supporting Document(s) SARS-COV-2 JUAN LUIS [facility] Not DetectedReference range: Not Detecte d This nucleic acid amplification test was developed and its performance characteristics determined by [employer]. Nucleic acid amplification tests include RT-PCR and [...] detected) result in this assay. Performed At: [employer] [address] [place], [place] [id number] Omar Irene PhD Ph:[phone] ID Date Data Source LDH LACTATE DEHYDROGENASE 02/01/2020 12:00:00 AM EST eCW1 ([facility]) Name Value Range Interpretation Code Description Data Priya rce(s) Supporting Document(s) [id number] LDH LACTATE DEHYDROGENASE eCW1 ([facility]) ID Date Data Source ALPHA FETOPROTEIN TUMOR QUANT 02/01/2020 12:00:00 AM EST eCW 1 ([facility]) Name Value Range Interpretation Code Description Data Priya rce(s) Supporting Document(s) 5.2 <8.1 ALPHA FETOPROTEIN TUMOR Q UANT eCW1 ([facility]) ID Date Data Source [id number] 12/21/2019 12:00:00 AM EST [facility] Raheem Mcdonnell MD Patient Name: CHANCE THOMPSON [facility] Date of : 1965[address] Date of Exam: 12/21/2019RENETTA Garcia [id number]#: Fax: [phone] EXAM: US SCROTUM & CONTENTSCLINICAL [...] varicocele and indeterminate possibleright-sided varicocele.Accredited by the [place] [employer] in General Ultrasound.ZA Bonner/Ilya you for referring KEI THOMPSON to our office. Electronically Signed - MARCO A WAGNER DO 12/22/19 17:07 Name Value Range Interpretation Code Description Data Priya rce(s) Supporting Document(s) Procedure Social History Code Duration Value Status Description Data Source(s ) Smoking 04/29/2020 12:00:00 AM EDT Never Smoker completed Never S moker eCW1 ([facility]) Alcohol intake 04/12/2020 12:00:00 AM EST Yes completed [facility] Smoking 04/12/2020 12:00:00 AM EST Never smoker completed Never s moker [facility] Smoking 01/31/2020 12:00:00 AM EST Never Smoker completed Never S moker eCW1 ([facility]) Smoking 01/31/2020 12:00:00 AM EST Never Smoker completed Never S moker eCW1 ([facility]) Smoking 01/31/2020 12:00:00 AM EST Never Smoker completed Never S moker eCW1 ([facility]) Vital Signs ID Date Data Source [...] Body weight 253 [lb_av] 253 [lb_av] eCW1 ([facility]) Body height 70 [in_i] 70 [in_i] eCW1 ([facility]) Body mass index (BMI) [Ratio] 36.30 kg/m2 36.30 kg/m2 eCW1 ([facility]) Heart rate 68 /min 68 /min eCW1 ([facility]) Respiratory rate 18 /min 18 /min eCW1 ([facility]) Body temperature 98.5 [degF] 98.5 [degF] eCW1 ( [facility]) Systolic blood pressure 126 mm[Hg] 126 mm[Hg] e CW1 ([facility]) Diastolic blood pressure 88 mm[Hg] 88 mm[Hg] eCW1 ([facility]) Systolic blood pressure 146 mm[Hg] 146 mm[Hg] [facility] Diastolic blood pressure 87 mm[Hg] 87 mm[Hg] [facility] Body temperature 36.5 Zunilda 36.5 Zunilda [facility] Respiratory rate 16 /min 16 /min [facility] Oxygen saturation in Arterial blood by Pulse oximetry 99 % 99 % [facility] Heart rate 67 /min 67 /min [facility] Body height 177.8 cm 177.8 cm [facility] Body weight 111.131 kg 111.131 kg [facility] Body mass index (BMI) [Ratio] 35.15 kg/m2 35.15 kg/m2 [facility] Body temperature 97.8 [degF] 97.8 [degF] MEDENT [...] Body weight 250 [lb_av] 250 [lb_av] eCW1 ([facility]) Body height 70 [in_i] 70 [in_i] eCW1 ([facility]) Body mass index (BMI) [Ratio] 35.87 kg/m2 35.87 kg/m2 eCW1 ([facility]) Heart rate 18 /min 18 /min eCW1 ([facility]) Respiratory rate 69 /min 69 /min eCW1 ([facility]) Body temperature 96.8 [degF] 96.8 [degF] eCW1 ( [facility]) Systolic blood pressure 132 mm[Hg] 132 mm[Hg] e CW1 ([facility]) Diastolic blood pressure 86 mm[Hg] 86 mm[Hg] eCW1 ([facility])
[2020-12-09 12:39] VITALS: BP 110/70
[2020-12-09 12:51] LABS: ERYTHROCYTE SEDIMENTATION RATE 14 mm/hr (0-20)
[2020-12-09] MEDS ORDERED: DOXY-443 PO (13:54)
[2020-12-09] MEDS ORDERED: VITMTA PO (23:52)
[2020-12-09] MEDS ORDERED: FISH1000 PO (23:52)
[2020-12-09] MEDS ORDERED: ATEN25TA PO (23:52)
[2020-12-09] MEDS ORDERED: D31000TA2 PO (23:52)
[2020-12-09] MEDS ORDERED: DOXY100T27 PO (23:52)
== END 2020-12-09 13:59 | disposition home or self-care (01) ==
LOC: M ED 09:10
DX: M70.22 Olecranon bursitis, left elbow (principal); S50.312A Abrasion of left elbow, initial encounter; L03.114 Cellulitis of left upper limb; X58.XXXA Exposure to other specified factors, initial encounter; Y92.099 Unspecified place in other non-institutional residence as the place of occurrence of the external cause; Y93.89 Activity, other specified; Y99.9 Unspecified external cause status; I10 Essential (primary) hypertension; Z88.2 Allergy status to sulfonamides

== ENCOUNTER 2020-12-09 22:29 | Inpatient (IN) | payer BC, OTHER ==
[~2020-12-09] VITALS: Ht 177.8 cm; Wt 107.2 kg
[~2020-12-09 22:29] MED LIST: ATEN25TA; DOXY-443 PO
--- OUTSIDE RECORDS SUMMARY | 2020-12-09 22:41 | CCD ---
Author Author [facility] Organization [facility] Address Unknown Phone Unavailable Care Team Providers Care Business Operations Consultant Name Role Phone Nuzhat, Maria Victoria Canales MD Unavailable Unavailable [...] is protected by Article 27-F of the [facility] Public Health law. If you continue you may have access to information: Regarding HIV / AIDS; Provided by facilities licensed or operated by the [facility] Office of Mental Health; or Provided by the [facility] Office for People With Developmental Disabilities. If such information is present, then the following [facility] mandated warning applies: This information [...] law may result in a fine or long-term sentence or both. A general authorization for [...] M EDT [facility] ([facility]) [place] [address] [address] 04/29/2020 12:00:00 AM EDT eCW1 (Formerly [facility]) Outpatient Admitter: Parker Noland MDReferrer: Parker Noland MD MOB-MOB.PAT 04/08/2020 08:07:07 AM EST - 04/08/2020 08:22:51 AM EST [facility] Outpatient Attender: Parker Harmon rona: Nancy Zhang MDAdmitter: Parker Noland MD ES1-SJ.EU 04/03/2020 08:05:11 AM EST - 04/12/2020 01:48:00 PM EST [facility] Patient discharged. Outpatient Attender: Parker Begum 03/29/2020 02:00:00 P M EST [facility] ([facility]) [place] [address] [address] 03/26/2020 12:00:00 AM EST eCW1 ([facility]) [place] [address] [place] [address] 02/12/2020 12:00:00 AM EST eCW1 ([facility]) [place] [address] [address] 01/31/2020 12:00:00 AM EST eCW1 ([facility]ly [facility]) Immunizations Vaccine Date Status Description Data Source(s) COVID-19 VACCINE [employer] 05/15/2020 12:00:00 AM EDT completed [facility] Vaccine Series Complete: YESThis Data wa s Submitted to [facility] Via [employer]. COVID-19 VACCINE Pfizer 04/24/2020 12:00:00 AM EST completed [facility] Vaccine Series Complete: NOThis Data was Submitted to [facility] Via [employer]. Medications Medication Brand Name Start Date Product [...] 4 WEEKS FOR TINEA CORPORIS SOLD: 08/01/2020 [facility] Diazepam 5 MG Oral Tablet [Valium] Valium 07/04/2020 12:00:00 AM EDT ORAL active [facility] ([facility]) 5 mg 07/04/2020 12:00:00 AM EDT tablet 30 TAKE ONE TABLET FOR PAIN EVERY NIGHT AT BEDTIME MAXIMUM DAILY DOSE = 1 TAKE ONE TABLET FOR PAIN EVERY NIGHT AT BEDTIME MAXIMUM DAILY DOSE = 1 SOLD: 07/05/2020 [facility] Multi Vitamin 04/24/2020 12:00:00 AM EST acti ve [facility] ([facility]) Cholecalciferol 2000 UNT Oral Tablet Vitamin D 04/24/2020 12:00:00 AM EST active [facility] ([facility]) Atenolol 25 MG Oral Tablet ATENOLOL 04/16/2020 12:00:00 AM EST tablet 90 TAKE ONE TABLET BY MOUTH EVERY DAY TAKE ONE TABLET BY MOUTH EVERY DAY SOLD: 04/21/2020 [facility] Atenolol 25 MG Oral Tablet ATENOLOL 04/16/2020 12:00:00 AM EST tablet 90 TAKE ONE TABLET BY MOUTH EVERY DAY TAKE ONE TABLET BY MOUTH EVERY DAY SOLD: 07/18/2020 [facility] 140-9-5.2 gram 03/30/2020 12:00:00 AM EST powder in packet, sequential 3 DO NOT FOLLOW DIRECTIONS ON BOX - FOLLOW DIRECTIONS GIVEN BY OFFICE DO NOT FOLLOW DIRECTIONS ON BOX - FOLLOW DIRECTIONS GIVEN BY OFFICE SOLD: 04/05/2020 [facility] Pl[facility] Plenvu 03/29/2020 12:00:00 AM EST active [facility] ([facility]) 25 mg 11/01/2019 12:00:00 AM EDT tablet 90 TAKE ONE TABLET BY MOUTH EVERY DAY TAKE ONE TABLET BY MOUTH EVERY DAY SOLD: 01/19/2020 [facility] 25 mg 11/01/2019 12:00:00 AM EDT tablet 90 TAKE ONE TABLET BY MOUTH EVERY DAY TAKE ONE TABLET BY MOUTH EVERY DAY SOLD: 11/06/2019 [facility] Insurance Providers Payer name Policy type / Coverage type Policy ID Covered republican ID Covered republican's relationship to fuentes Policy Fu[place] Plan Information [employer] [place]/307 [id number] SP [id number] [employer] [place]/307 [id number] SP [id number] [place] [place]/307 [id number] SP [id number] BC EXC PLANS 1 [id number] EXCELLUS H [id number] Self [id number] [employer] [place] 302/307 [id number] SP [id number] EXCELLUS BCBS [id number] Shereen VYS [id number] EXCELLUS BCBS [id number] Shereen VYS [id number] EXCELLUS BCBS [id number] Shereen VYS [id number] EXCELLUS BCBS [id number] Shereen VYA [id number] EXCELLUS H [id number] Self [id number] EXCELLUS BCBS [id number] [phone] [id number] EXCELLUS BCBS [id number] Shereen VYA [id number] EXCELLUS BCBS [id number] Shereen VYA [id number] INSURANCE COVID-19 COVID Shereen C OVID INSURANCE COVID-19 [id number] [employer] [id number] SP [id number] [employer] [place] P[place] 302/307 [id number] SP [id number] EXCELLUS BCBS B [id number] S VYA [id number] BC[employer] Commercial [id number] Self [id number] SELF PAY 2 UNAVAILABLE 1 UNAVAILA BLE HMO BLUE [id number] SP [id number] [employer] [place] PPO 302/307 [id number] SP [id number] Problems, Conditions, and Diagnoses Code Display Name Description Problem Type Effective Dates Data Source(s) Z86.010 Personal history of colonic polyps Personal hist ory of colonic polyps Diagnosis 04/12/2020 10:59:00 AM EST [facility] U07.1 COVID-19 COVID-19 Diagnosis 04/08/2020 08:07:07 AM ES T [facility] N50.3 Epididymal cyst Epididymal cyst Problem 04/29/2020 12:0 0:00 AM EDT eCW1 ([facility]) N50.89 Other specified disorders of the male ge nital organs Testicular calcification Problem 04/29/2020 12:00:00 AM EDT eCW1 ([facility]) [id number] Essential hypertension Essential hypertension Problem 04/24/2020 12:00:00 [...] [facility]) Results ID Date Data Source [id number] 04/19/2020 06:25:27 AM EST [facility] [place] [address]Tel# Surgical Pathology ReportPatient Name: KEI THOMPSON: 1965Accession [...] 04/19/2020Electronically Signed Out By Cathy Flores M.D. [facility] [place] [address] [id number] component performed at [facility], Histopathology, [address] [place] [address], [phone].Reported at [facility], [address] [place] [address], [phone]. This report may includeimmunohistochemical or in-situ hybridization results. Testing wasdeveloped and the performance characteristics determined by [facility] [employer] [facility] as required by CLIA '88. The FDA hasdetermined that approval for specific use is not necessary for clinicaluse. The quality of Hematoxylin and Eosin stains and as applicable, forall immunohistochemical and/or special stains, including positive andnegative controls, were reviewed and considered appropriate.ICD codes K63.5CPT codesA: 04735KV: 11535U Name Value Range Interpretation Code Description Data Priya rce(s) Supporting Document(s) ID Date Data Source [id number] 04/12/2020 12:53:09 PM EST [facility] INFORMATIONPatient MRN Name Date of Age Gend*PT [id number] Kei Thompson Keshia 1965 54 years M OPPT Location Admission Date/Time Visit ID [facility] [place] [facility]12/20 1059 --- Parker Noland MD([id number]) EPI ID CSN Admitting Provider [id number] Parker Noland MD([id number])Colonoscopy Procedure NotePatient: Kei ThompsonSurgerdb Date: 04/12/2020urgeon(s):Parker Noland MDPre-procedure Diagnosis:ScreeningPost-procedure DiagnosisScreening,PolypASA Class: IIIProcedure: Colonoscopy with polypectomySedation:Department [...] rce(s) Supporting Document(s) ID Date Data Source [id number] 04/11/2020 12:00:00 AM EST [facility] Patricia Truong Np Patient Name: KEI THOMPSON[address] Date of : 1965[address] Date of Exam: 04/11/2020RENETTA Garcia [id number]#: Fax: [phone] EXAM: US SCROTUM & CONTENTSCLINICAL [...] bothmeasuring 9 mm in diameter.Accredited by the [employer] in General Ultrasound.FABIENNE Alcala/Ilya you for referring KEI THOMPSON to our office. Electronically Signed - RIKI DAMON MD 04/11/20 13:02 Name Value Range Interpretation Code Description Data Priya rce(s) Supporting Document(s) ID Date Data Source [id number] 04/08/2020 08:40:00 AM EST [facility] Name Value Range Interpretation Code Description Data Priya rce(s) Supporting Document(s) SARS coronavirus 2 RNA Not Detected [facility] This lab was ordered by [facility] and reported by [employer]. ID Date Data Source [id number] 04/09/2020 06:09:38 PM EST [facility] Name Value Range Interpretation Code Description Data Priya rce(s) Supporting Document(s) SARS-COV-2 JUAN LUIS [facility] Not DetectedReference range: Not Detecte d This nucleic acid amplification test was developed and its performance characteristics determined by [employer]. Nucleic acid amplification tests include RT-PCR and [...] detected) result in this assay. Performed At: [employer] [place], [place] [id number] Omar Irene PhD Ph:[phone] ID Date Data Source LDH LACTATE DEHYDROGENASE 02/01/2020 12:00:00 AM EST eCW1 ([facility]) Name Value Range Interpretation Code Description Data Priya rce(s) Supporting Document(s) [id number] LDH LACTATE DEHYDROGENASE eCW1 ([facility]) ID Date Data Source ALPHA FETOPROTEIN TUMOR QUANT 02/01/2020 12:00:00 AM EST eCW 1 ([facility]) Name Value Range Interpretation Code Description Data Priya rce(s) Supporting Document(s) 5.2 <8.1 ALPHA FETOPROTEIN TUMOR Q UANT eCW1 ([facility]) ID Date Data Source [id number] 12/21/2019 12:00:00 AM EST [facility] Raheem Mcdonnell MD Patient Name: CHANCE THOMPSON [facility] Date of : 1965[address] Date of Exam: 12/21/2019RENETTA Garcia [id number]#: fax: [phone] EXAM: US SCROTUM & CONTENTSCLINICAL INFORMATION: [...] varicocele and indeterminate possibleright-sided varicocele.Accredited by the [employer] in General Ultrasound.ZA Bonner/Ilya you for referring KEI THOMPSON to our office. Electronically Signed - MARCO A WAGNER DO 12/22/19 17:07 Name Value Range Interpretation Code Description Data Priya rce(s) Supporting Document(s) Procedure Social History Code Duration Value Status Description Data Source(s ) Smoking 04/29/2020 12:00:00 AM EDT Never Smoker completed Never S jose eCW1 ([facility]) Alcohol intake 04/12/2020 12:00:00 AM EST Yes completed [facility] Smoking 04/12/2020 12:00:00 AM EST Never smoker completed Never s judyker [facility] Smoking 01/31/2020 12:00:00 AM EST Never Smoker completed Never S moker eCW1 ([facility]) Smoking 01/31/2020 12:00:00 AM EST Never Smoker completed Never S moker eCW1 ([facility]) Smoking 01/31/2020 12:00:00 AM EST Never Smoker completed Never S moker eCW1 ([facility]) Vital Signs ID Date Data [...] Body weight 253 [lb_av] 253 [lb_av] eCW1 ([facility]) Body height 70 [in_i] 70 [in_i] eCW1 ([facility]) Body mass index (BMI) [Ratio] 36.30 kg/m2 36.30 kg/m2 eCW1 ([facility]) Heart rate 68 /min 68 /min eCW1 ([facility]) Respiratory rate 18 /min 18 /min eCW1 ([facility]) Body temperature 98.5 [degF] 98.5 [degF] eCW1 ( [facility]) Systolic blood pressure 126 mm[Hg] 126 mm[Hg] e CW1 ([facility]) Diastolic blood pressure 88 mm[Hg] 88 mm[Hg] eCW1 ([facility]) Systolic blood pressure 146 mm[Hg] 146 mm[Hg] [facility] Diastolic blood pressure 87 mm[Hg] 87 mm[Hg] [facility] Body temperature 36.[address] [facility] Respiratory rate 16 /min 16 /min [facility] Oxygen saturation in Arterial blood by Pulse oximetry 99 % 99 % [facility] Heart rate 67 /min 67 /min [facility] Body height 177.8 cm 177.8 cm [facility] Body weight 111.131 kg 111.131 kg [facility] Body mass index (BMI) [Ratio] 35.15 kg/m2 35.15 kg/m2 [facility] Body temperature 97.8 [degF] 97.8 [degF] MED[facility] ([facility]) Respiratory rate 18 /min 18 /min [facility] ( [facility]) Systolic blood pressure 139 mm[Hg] 139 mm[Hg] M EDENT ([facility]) Diastolic blood pressure 93 mm[Hg] 93 mm[Hg] MED[facility] ([facility]) Body mass [...] T ([facility]) Body weight 250 [lb_av] 250 [lb_av] eCW1 ([facility]) Body height 70 [in_i] 70 [in_i] eCW1 ([facility]) Body mass index (BMI) [Ratio] 35.87 kg/m2 35.87 kg/m2 eCW1 ([facility]) Heart rate 18 /min 18 /min eCW1 ([facility]) Respiratory rate 69 /min 69 /min eCW1 ([facility]) Body temperature 96.8 [degF] 96.8 [degF] eCW1 ( [facility]) Systolic blood pressure 132 mm[Hg] 132 mm[Hg] e CW1 ([facility]) Diastolic blood pressure 86 mm[Hg] 86 mm[Hg] eCW1 ([facility])
[2020-12-09] MEDS ORDERED: ACETAMINOPHEN 500 MG TAB PO ONE (23:30)
--- OUTSIDE RECORDS SUMMARY | 2020-12-09 23:34 | CCD ---
Author Author [facility] Organization [facility] Address Unknown Phone Unavailable Care Team Providers Care Mandate Retail Service Merchandiser Name Role Phone Nuzhat, Maria Victoria Canales [...] is protected by Article 27-F of the [facility] Public Health law. If you continue you may have access to information: Regarding HIV / AIDS; Provided by facilities licensed or operated by the [facility] Office of Mental Health; or Provided by the [facility] Office for People With Developmental Disabilities. If such information is present, then the following [facility] mandated warning applies: This information has been [...] law may result in a fine or alf sentence or both. A general authorization for [...] ([facility]) [place] [address] [facility] [address] 04/29/2020 12:00:00 AM EDT eCW1 ([facility]) Outpatient Admitter: Parker Noland MDReferrer: Parker Noland MD MOB-MOB.PAT 04/08/2020 08:07:07 AM EST - 04/08/2020 08:22:51 AM EST [facility] Outpatient Attender: Parker Harmon rona: Nancy Zhang MDAdmitter: Parker Noland MD [email or web address] 04/03/2020 08:05:11 AM EST - 04/12/2020 01:48:00 PM EST [facility] Patient discharged. Outpatient Attender: Parker Begum 03/29/2020 02:00:00 P M EST [facility] ([facility]) [place] [address] [facility] [address] 03/26/2020 12:00:00 AM EST eCW1 ([facility]) [place] [address] [facility] [address] 02/12/2020 12:00:00 AM EST eCW1 ([facility]) Out[place] [address] [facility] [address] 01/31/2020 12:00:00 AM EST eCW1 ([facility]) Immunizations Vaccine Date Status Description Data Source(s) COVID-19 VACCINE ABA English 05/15/2020 12:00:00 AM EDT completed [facility] Vaccine Series Complete: YESThis Data wa s Submitted to [facility] Via [employer]. COVID-19 VACCINE Pfizer 04/24/2020 12:00:00 AM EST completed [facility] Vaccine Series Complete: NOThis Data was Submitted to [facility] [employer]. Medications Medication Brand Name Start Date Product [...] 4 WEEKS FOR TINEA CORPORIS SOLD: 08/01/2020 [facility] Diazepam 5 MG Oral Tablet [Valium] Valium 07/04/2020 12:00:00 AM EDT ORAL active [facility] ([facility]) 5 mg 07/04/2020 12:00:00 AM EDT tablet 30 TAKE ONE TABLET FOR PAIN EVERY NIGHT AT BEDTIME MAXIMUM DAILY DOSE = 1 TAKE ONE TABLET FOR PAIN EVERY NIGHT AT BEDTIME MAXIMUM DAILY DOSE = 1 SOLD: 07/05/2020 [facility] [employer] Multi Vitamin 04/24/2020 12:00:00 AM EST acti ve MEDENT ([facility]) Cholecalciferol 2000 UNT Oral Tablet Vitamin D 04/24/2020 12:00:00 AM EST active [facility] ([facility]) Atenolol 25 MG Oral Tablet ATENOLOL 04/16/2020 12:00:00 AM EST tablet 90 TAKE ONE TABLET BY MOUTH EVERY DAY TAKE ONE TABLET BY MOUTH EVERY DAY SOLD: 04/21/2020 [employer] Atenolol 25 MG Oral Tablet ATENOLOL 04/16/2020 12:00:00 AM EST tablet 90 TAKE ONE TABLET BY MOUTH EVERY DAY TAKE ONE TABLET BY MOUTH EVERY DAY SOLD: 07/18/2020 [employer] 140-9-5.2 gram 03/30/2020 12:00:00 AM EST powder in packet, sequential 3 DO NOT FOLLOW DIRECTIONS ON BOX - FOLLOW DIRECTIONS GIVEN BY OFFICE DO NOT FOLLOW DIRECTIONS ON BOX - FOLLOW DIRECTIONS GIVEN BY OFFICE SOLD: 04/05/2020 [email or web address] 03/29/2020 12:00:00 AM EST active MEDENT ([facility]) 25 mg 11/01/2019 12:00:00 AM EDT tablet 90 TAKE ONE TABLET BY MOUTH EVERY DAY TAKE ONE TABLET BY MOUTH EVERY DAY SOLD: 01/19/2020 [facility] 25 mg 11/01/2019 12:00:00 AM EDT tablet 90 TAKE ONE TABLET BY MOUTH EVERY DAY TAKE ONE TABLET BY MOUTH EVERY DAY SOLD: 11/06/2019 [employer] Insurance Providers Payer name Policy type / Coverage type Policy ID Covered libertarian ID Covered libertarian's relationship to fuentes Policy Fuentes Plan Information [employer] [place]/307 [id number] SP [id number] [employer] [place]/307 [id number] SP [id number] [place] [place]/307 [id number] SP [id number] BC EXC PLANS 1 [id number] EXCELLUS H [id number] Self [id number] [employer] [place]/307 [id number] SP [id number] EXCELLUS BCBS [id number] Shereen VYS [id number] EXCELLUS BCBS [id number] Shereen VYS [id number] EXCELLUS BCBS [id number] Shereen VYS [id number] EXCELLUS BCBS [id number] Shereen VYA [id number] EXCELLUS H [id number] Self [id number] EXCELLUS BCBS [id number] [id number] EXCELLUS BCBS [id number] Shereen VYA [id number] EXCELLUS BCBS [id number] Shereen VYA [id number] INSURANCE COVID-19 COVID Shereen C OVID INSURANCE COVID-19 [id number] [employer] [id number] SP [id number] [employer] [place]/307 [id number] SP [id number] EXCELLUS BCBS B [id number] S VYA [id number] BCBS/[employer] Commercial [id number] Self [id number] SELF PAY 2 UNAVAILABLE 1 UNAVAILA BLE HMO BLUE [id number] SP [id number] [employer] [place] PPO 302/307 [id number] SP [id number] Problems, Conditions, and Diagnoses Code Display Name Description Problem Type Effective Dates Data Source(s) Z86.010 Personal history of colonic polyps Personal hist ory of colonic polyps Diagnosis 04/12/2020 10:59:00 AM EST [facility] U07.1 COVID-19 COVID-19 Diagnosis 04/08/2020 08:07:07 AM ES T [facility] N50.3 Epididymal cyst Epididymal cyst Problem 04/29/2020 12:0 0:00 AM EDT eCW1 ([facility]) N50.89 Other specified disorders of the male ge nital organs Testicular calcification Problem 04/29/2020 12:00:00 AM EDT eCW1 ([facility]) [id number] Essential hypertension Essential hypertension Problem 04/24/2020 12:00:00 [...] [facility]) Results ID Date Data Source [id number] 04/19/2020 06:25:27 AM EST [facility] [place], [place] [address]Tel# Surgical Pathology ReportPatient Name: KEI THOMPSON: 1965Accession [...] 04/19/2020Electronically Signed Out By Cathy Flores M.D. [facility] [place] [address] [id number] component performed at [facility], Histopathology, [address] [place] [address], [address].Reported at [facility], [address] [place] [address], [id number]. This report may includeimmunohistochemical or in-situ hybridization results. Testing wasdeveloped and the performance characteristics determined by [facility] [employer] [facility] as required by CLIA '88. The FDA hasdetermined that approval for specific use is not necessary for clinicaluse. The quality of Hematoxylin and Eosin stains and as applicable, forall immunohistochemical and/or special stains, including positive andnegative controls, were reviewed and considered appropriate.ICD codes K63.5CPT codesA: 66831SB: 83697D Name Value Range Interpretation Code Description Data Priya rce(s) Supporting Document(s) ID Date Data Source [id number] 04/12/2020 12:53:09 PM EST [facility] INFORMATIONPatient MRN Name Date of Age Gend*PT [id number] Kei Thompson Keshia 1965 54 years M OPPT Location Admission Date/Time [facility]12[facility]20 1059 --- Parker Noland MD([id number]) EPI ID CSN Admitting Provider [id number] Parker Noland MD([id number])Colonoscopy Procedure NotePatient: Kei ThompsonSurgerdb Date: 04/12/2020urgeon(s):Parker Noland [...] rce(s) Supporting Document(s) ID Date Data Source [id number] 04/11/2020 12:00:00 AM EST [facility] Patricia Truong Np Patient Name: KEI THOMPSON[address] Date of : 1965[address] Date of Exam: 04/11/2020RENETTA Garcia [id number]#: Fax: [phone] EXAM: US SCROTUM & CONTENTSCLINICAL [...] bothmeasuring 9 mm in diameter.Accredited by the [employer] in General Ultrasound.FABIENNE Alcala/Ilya you for referring KEI THOMPSON to our office. Electronically Signed - RIKI DAMON MD 04/11/20 13:02 Name Value Range Interpretation Code Description Data Priya rce(s) Supporting Document(s) ID Date Data Source [id number] 04/08/2020 08:40:00 AM EST [facility] Name Value Range Interpretation Code Description Data Priya rce(s) Supporting Document(s) SARS coronavirus [address] [facility] This lab was ordered by [facility] and reported by [employer]. ID Date Data Source [id number] 04/09/2020 06:09:38 PM EST [facility] Name Value Range Interpretation Code Description Data Priya rce(s) Supporting Document(s) SARS-COV-2 JUAN LUIS [facility] Not DetectedReference range: Not Detecte d This nucleic acid amplification test was developed and its performance characteristics determined by [employer]. Nucleic acid amplification tests include RT-PCR and [...] detected) result in this assay. Performed At: [employer] [place], [place] [id number] Omar Irene PhD Ph:[phone] ID Date Data Source LDH LACTATE DEHYDROGENASE 02/01/2020 12:00:00 AM EST eCW1 ([facility]) Name Value Range Interpretation Code Description Data Priya rce(s) Supporting Document(s) [id number] LDH LACTATE DEHYDROGENASE eCW1 ([facility]) ID Date Data Source ALPHA FETOPROTEIN TUMOR QUANT 02/01/2020 12:00:00 AM EST eCW 1 ([facility]) Name Value Range Interpretation Code Description Data Priya rce(s) Supporting Document(s) 5.2 <8.1 ALPHA FETOPROTEIN TUMOR Q UANT eCW1 ([facility]) ID Date Data Source [id number] 12/21/2019 12:00:00 AM EST [facility] Raheem Mcdonnell MD Patient Name: CHANCE THOMPSON [facility] Date of : 1965[address] Date of Exam: 12/21/2019RENETTA Garcia [id number]#: fax: [phone] EXAM: US SCROTUM & CONTENTSCLINICAL [...] varicocele and indeterminate possibleright-sided varicocele.Accredited by the [employer] in General Ultrasound.ZA Bonner/Ilya you for referring KEI THOMPSON to our office. Electronically Signed - MARCO A WAGNER DO 12/22/19 17:07 Name Value Range Interpretation Code Description Data Priya rce(s) Supporting Document(s) Procedure Social History Code Duration Value Status Description Data Source(s ) Smoking 04/29/2020 12:00:00 AM EDT Never Smoker completed Never S jose eCW1 ([facility]) Alcohol intake 04/12/2020 12:00:00 AM EST Yes completed [facility] Smoking 04/12/2020 12:00:00 AM EST Never smoker completed Never s judyker [facility] Smoking 01/31/2020 12:00:00 AM EST Never Smoker completed Never S moker eCW1 ([facility]) Smoking 01/31/2020 12:00:00 AM EST Never Smoker completed Never S moker eCW1 ([facility]) Smoking 01/31/2020 12:00:00 AM EST Never Smoker completed Never S moker eCW1 ([facility]) Vital Signs ID Date Data Source UNK [...] Body weight 253 [lb_av] 253 [lb_av] eCW1 ([facility]) Body height 70 [in_i] 70 [in_i] eCW1 ([facility]) Body mass index (BMI) [Ratio] 36.30 kg/m2 36.30 kg/m2 eCW1 ([facility]) Heart rate 68 /min 68 /min [facility]) Respiratory rate 18 /min 18 /min eCW1 ([facility]) Body temperature 98.5 [degF] 98.5 [degF] eCW1 ( [facility]) Systolic blood pressure 126 mm[Hg] 126 mm[Hg] e CW1 ([facility]) Diastolic blood pressure 88 mm[Hg] 88 mm[Hg] eCW1 ([facility]) Systolic blood pressure 146 mm[Hg] 146 mm[Hg] [facility] Diastolic blood pressure 87 mm[Hg] 87 mm[Hg] [facility] Body temperature 36.5 Zunilda 36.5 Zunilda [facility] Respiratory rate 16 /min 16 /min [facility] Oxygen saturation in Arterial blood by Pulse oximetry 99 % 99 % [facility] Body mass index (BMI) [Ratio] 35.15 kg/m2 35.15 kg/m2 [facility] Heart rate 67 /min 67 /min [facility] Body height 177.8 cm 177.8 cm [facility] Body weight 111.131 kg 111.131 kg [facility] Body temperature 97.8 [degF] 97.8 [degF] [facility] ([facility]) Respiratory rate 18 /min 18 /min [facility] ( [facility]) Body weight 248.00 [...] Body weight 250 [lb_av] 250 [lb_av] eCW1 ([facility]) Body height 70 [in_i] 70 [in_i] eCW1 ([facility]) Body mass index (BMI) [Ratio] 35.87 kg/m2 35.87 kg/m2 eCW1 ([facility]) Heart rate 18 /min 18 /min eCW1 ([facility]) Respiratory rate 69 /min 69 /min eCW1 ([facility]) Body temperature 96.8 [degF] 96.8 [degF] eCW1 ( [facility]) Systolic blood pressure 132 mm[Hg] 132 mm[Hg] e CW1 ([facility]) Diastolic blood pressure 86 mm[Hg] 86 mm[Hg] eCW1 ([facility])
[2020-12-09] MEDS ORDERED: ATEN25TA PO (23:52)
[2020-12-09] MEDS ORDERED: FISH1000 PO (23:52)
[2020-12-09] MEDS ORDERED: VITMTA PO (23:52)
[2020-12-09] MEDS ORDERED: D31000TA2 PO (23:52)
[2020-12-09] MEDS ORDERED: DOXY100T27 PO (23:52)
[2020-12-09] MEDS ORDERED: HOME MED LIST COMPLETE! XX SCH (23:55)
[2020-12-10 00:29] LABS: BASO # 0.1 10^3/uL (0.0-0.2); BASO % 0.4 % (0.0-1.0); EOS # 0.1 10^3/uL (0.0-0.5); EOS % 0.7 % (0.0-3.0); HEMATOCRIT 44.2 % (42.0-52.0); HEMOGLOBIN 15.5 g/dl (13.5-17.5); LYMPH # 2.2 10^3/uL (1.5-5.0); LYMPH % 16.9 % (24.0-44.0); MEAN CORPUSCULAR HEMOGLOBIN 31.6 pg (27.0-33.0); MEAN CORPUSCULAR HGB CONC 35.1 g/dl (32.0-36.5); MONO # 1.1 10^3/uL (0.0-0.8); MONO % 8.6 % (2.0-8.0); NEUTROPHILS # 9.4 10^3/uL (1.5-8.5); NEUTROPHILS % 72.9 % (36.0-66.0); PLATELET COUNT, AUTOMATED 254 10^3/uL (150-450); RED BLOOD COUNT 4.91 10^6/uL (4.30-6.10); WHITE BLOOD COUNT 12.9 10^3/uL (4.0-10.0)
[2020-12-10 00:47] LABS: ERYTHROCYTE SEDIMENTATION RATE 26 mm/hr (0-20)
[2020-12-10] MEDS ORDERED: ceFAZolin SOD 2 GM in IV 1 EA IV ONE (00:50)
--- NOTE | 2020-12-10 01:21 | REPVR ---
PROCEDURE INFORMATION: Exam: US Left Non-Vascular Joint or Other Extremity Structure Exam date and time: 12/10/2020 12:10 AM Age: 55 years old Clinical indication: Swelling; Elbow; Left; Additional info: Swelling and erythema to elbow, concern abscess/fluid collection TECHNIQUE: Imaging protocol: Left US joint or other nonvascular extremity structure or structures. Real-time ultrasound with image documentation. Limited study. Exam focused on the upper extremity in the region of clinical interest. COMPARISON: No relevant prior studies available. FINDINGS: Soft tissues: There is a 3.6 cm x 1.5 cm x 3.4 cm fluid collection in the soft tissues posterior to the left elbow with surrounding hyperemia. IMPRESSION: 3.6 cm x 1.5 cm x 3.4 cm fluid collection in the soft tissues posterior to the left elbow with surrounding hyperemia, which may represent an abscess, olecranon bursitis, or hematoma. Electronically signed by: Fred Reyes On 12/10/2020 01:20:41 AM
[2020-12-10 01:56] LABS: BLOOD UREA NITROGEN 13 MG/DL (7-18); C REACTIVE PROTEIN QUANTITATIV 4.44 MG/DL (0.00-0.30); CALCIUM LEVEL 8.5 MG/DL (8.5-10.1); CARBON DIOXIDE LEVEL 26 MEQ/L (21-32); CHLORIDE LEVEL 106 MEQ/L (98-107); CREATININE FOR GFR 1.13 MG/DL (0.70-1.30); GLOMERULAR FILTRATION RATE > 60.0 (>56); GLUCOSE, FASTING 122 MG/DL (70-100); POTASSIUM SERUM 3.8 MEQ/L (3.5-5.1); SODIUM LEVEL 141 MEQ/L (136-145)
--- NOTE | 2020-12-10 02:19 | CR.PDOC ---
General Date of Consultation: Dec 10, 2020 Attending Physician: GILBERT GONZALEZ MD Consultation REASON FOR CONSULTATION/CHIEF COMPLAINT: [Possible infected bursitis olecranon]. 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 Abrasions over both olecranon from crawling on the ground. Sustained these bruises 2 week ago. Seen in the emerge this morning increased swelling. Sent home on doxycycline. Return with increased swelling of his elbow. Full range of motion of the elbow. Feels a bit tight. He states the swelling may have even gone down. No radiating pain. No pain in the shoulder wrist elbow no pain with range of motion of his wrist or fingers. Sensory intact to light touch]. ALLERGIES: Please see below. HOME MEDICATIONS: Please see below. PAST MEDICAL/SURGICAL HISTORY: Hypertension Right Achilles tendon repair Appendectomy Bilateral knee scopes SOCIAL HISTORY: Endorses drinking alcohol socially Denies tobacco use Denies illicit drug use FAMILY HISTORY: Reviewed and none contributory to this admission ALLERGIES: Please see below. REVIEW OF SYSTEMS: 14 point review of systems negative except for HPI PHYSICAL EXAMINATION: Focused physical exam left upper extremity Abrasions bilateral olecranon Swelling of the left olecranon bursa and elbow Full range of motion of his elbow no pain Describes the radiating pain Full range of motion shoulder fingers Sensory intact to light touch Palpation of the olecranon bursa, boggy not fluctuant, no pain with palpation There is erythema radiating out from the olecranon. LABORATORY DATA: Please see below. ASSESSMENT/PLAN: Possible olecranon infected bursa vs versus cellulitis Plan would be to admit for IV broad-spectrum antibiotics Blood cultures done this morning are pending. If symptoms do not improve with IV antibiotics please call orthopedics for possible surgical intervention. Patient advised to monitor pain with motion of his elbow. Vital Signs/I&O Vital Signs Date Time Temp Pulse Resp B/P (MAP) Pulse Ox O2 Delivery O2 Flow Rate FiO2 12/10/20 01:00 98.9 75 18 135/79 (97) 97 Room Air Laboratory Data Labs 24H Laboratory Tests 2 12/09/20 22:39: Immature Granulocyte % (Auto) 0.5, Neutrophils (%) (Auto) 72.9H, Lymphocytes (%) (Auto) 16.9L, Monocytes (%) (Auto) 8.6H, Eosinophils (%) (Auto) 0.7, Basophils (%) (Auto) 0.4, Neutrophils # (Auto) 9.4H, Lymphocytes # (Auto) 2.2, Monocytes # (Auto) 1.1H, Eosinophils # (Auto) 0.1, Basophils # (Auto) 0.1, Nucleated Red Blood Cells % (auto) 0.0, Erythrocyte Sedimentation Rate 26H, Anion Gap 9, Glomerular Filtration Rate > 60.0, Lactic Acid Level 1.5, Calcium Level 8.5, C- Reactive Protein, Quantitative 4.44H, Coronavirus (COVID-19)(PCR) NEGATIVE CBC/BMP Laboratory Tests 12/09/20 22:39 Microbiology Microbiology 12/09/20 Blood Culture, Received Pending 12/09/20 Blood Culture, Received Pending Allergies Coded Allergies: Sulfa (Sulfonamide Antibiotics) (Verified Allergy, Intermediate, Hives, 12/09/20) Home Medications Scheduled Atenolol (Atenolol) 25 Mg Tablet, 25 MG PO QHS, (Reported) Cholecalciferol (Vitamin D3) (Vitamin D3) 1,000 Unit Tablet, 1,000 UNITS PO DAILY, (Reported) Doxycycline Monohydrate (Doxycycline Monohydrate) 100 Mg Tablet, 100 MG PO BID for 10 Days, (Reported) STARTED ON 12/09/20 Multivitamins (Thera M Plus Tablet) 1 Each Tablet, 1 TAB PO DAILY, (Reported) [place]-3 Fatty Acids/Fish Oil (Fish Oil 1,000 mg Capsule) 1 Each Capsule, 1,000 MG PO DAILY, (Reported) GILBERT GONZALEZ MD Dec 10, 2020 02:19
[2020-12-10] MEDS ORDERED: ACETAMINOPHEN TAB 650MG DOSE (2X325MG) PO PRN (02:45)
[2020-12-10] MEDS ORDERED: ceFAZolin SOD 2 GM in IV 1 EA IV SCH (02:45)
[2020-12-10] MEDS ORDERED: NORCO, ANEXSIA 5/325MG TABLET (HYDROcodone/ACETAMINOPHEN) PO PRN (02:45)
[2020-12-10] MEDS ORDERED: VANCOMYCIN HCL 1,000 MG, VIAL MATE ADAPTER 1 EACH in NS 250 ML IV ONE ×2 (03:00→04:00)
--- NOTE | 2020-12-10 03:01 | HPEPDOC ---
[facility] Medical History & Physical Date of Admission Dec 10, 2020 Date of Service: Dec 10, 2020 History and Physical CHIEF COMPLAINT: Left elbow pain HISTORY OF PRESENT ILLNESS: 55M hx HTN presents with a one-day history of left elbow pain and swelling. Patient endorses that 2 weeks ago he was on his elbows working under the kitchen sink when he sustained some abrasions to both elbows. Last night he noticed some pain and swelling affecting his left elbow he came to the ED this morning was diagnosed with bursitis possibly cellulitis and discharged home on doxycycline. He returns later at night because he noticed his elbow pain and swelling had worsened. At this time he reports that both swelling and pain had subsided considerably compared to when he first came in. Ultrasound reveals a 3.6 x 1.5 x 3.5 cm fluid collection posterior to the left elbow which to report indicates might represent an abscess, hematoma, all occurring on bursitis and so orthopedic surgery was consulted from the ED who evaluated patient bedside and determined the presentation is most compatible with olecranon bursitis and no fluid drainage is necessary at this time. Patient reports that last night he was having some fever and chills and CBC shows mild leukocytosis 12.9. ESR elevated 26 and CRP is 4.44. His temperature in the ED is 99.6. Patient will be admitted to the medical service for medical management of possibly septic bursitis vs cellulitis. PAST MEDICAL/SURGICAL HISTORY: Hypertension Right Achilles tendon repair Appendectomy Bilateral knee scopes SOCIAL HISTORY: Endorses drinking alcohol socially Denies tobacco use Denies illicit drug use FAMILY HISTORY: Reviewed and none contributory to this admission ALLERGIES: Please see below. REVIEW OF SYSTEMS: 10 point review of systems complete all negative otherwise stated in HPI HOME MEDICATIONS: Please see below. PHYSICAL EXAMINATION: Constitutional: Awake and alert, in no apparent distress ENT: Sclera are clear. Mucosa is moist. Respiratory: Lungs CTA bilaterally. No respiratory distress. Cardiovascular: RRR S1 and S2 are normal Gastrointestinal: Abdomen is soft, non distended, non tender, BS present. Musculoskeletal: He has superficial abrasions bilaterally on elbows. Left elbow has some mild swelling around the old drain on bursa. Patient has full range of motion and doesn't seem to be much pain while moving his elbow. There is no purulent discharge. Some erythema over the elbow demarcated with pen has increased slightly since he was last in the ER this morning. Neurologic: No focal neurological deficit. Mental Status: A&O x3, normal affect LABORATORY DATA: See below. IMAGING: Elbow US IMPRESSION: 3.6 cm x 1.5 cm x 3.4 cm fluid collection in the soft tissues posterior to the left elbow with surrounding hyperemia, which may represent an abscess, olecranon bursitis, or hematoma. MICROBIOLOGY: Please see below. ASSESSMENT/PLAN 55-year-old male history of hypertension presents with left elbow pain and swelling concerning for septic bursitis versus cellulitis ultrasound showing fluid collection which to report indicates might represent abscess versus old creatinine bursitis versus hematoma, patient was evaluated by orthopedic surgery in the ED determined aspiration not necessary at this time and recommended IV antibiotics. Patient admitted for medical management with possible surgical intervention if patient does not respond to IV antibiotics. # Possibly septic bursitis vs cellulitis: board spectrum with IV cefazolin and vancomycin. Fu BCx. Evaluated in ED by ortho Dr Alcantar, likely not enough to drain at this time. Consult ortho for possible surgical intervention is the joint fails to improve/worsens. Pain control with tylenol/norco and IV morphine for breakthrough pain. IVFs. # Hypertension: Continue home meds. Monitor and titrate # DVT prophylaxis: Lovenox [facility] Vital Signs Vital Signs Date Time Temp Pulse Resp B/P (MAP) Pulse Ox O2 Delivery O2 Flow Rate FiO2 12/10/20 01:00 98.9 75 18 135/79 (97) 97 Room Air Laboratory Data Labs 24H Laboratory Tests 2 12/09/20 22:39: Immature Granulocyte % (Auto) 0.5, Neutrophils (%) (Auto) 72.9H, Lymphocytes (%) (Auto) 16.9L, Monocytes (%) (Auto) 8.6H, Eosinophils (%) (Auto) 0.7, Basophils (%) (Auto) 0.4, Neutrophils # (Auto) 9.4H, Lymphocytes # (Auto) 2.2, Monocytes # (Auto) 1.1H, Eosinophils # (Auto) 0.1, Basophils # (Auto) 0.1, Nucleated Red Blood Cells % (auto) 0.0, Erythrocyte Sedimentation Rate 26H, Anion Gap 9, Glom erular Filtration Rate > 60.0, Lactic Acid Level 1.5, Calcium Level 8.5, C- Reactive Protein, Quantitative 4.44H, Coronavirus (COVID-19)(PCR) NEGATIVE CBC/BMP Laboratory Tests 12/09/20 22:39 Microbiology Microbiology 12/09/20 Blood Culture, Received Pending 12/09/20 Blood Culture, Received Pending Home Medications Scheduled Atenolol (Atenolol) 25 Mg Tablet, 25 MG PO QHS Cholecalciferol (Vitamin D3) (Vitamin D3) 1,000 Unit Tablet, 1,000 UNITS PO DAILY Doxycycline Monohydrate (Doxycycline Monohydrate) 100 Mg Tablet, 100 MG PO BID STARTED ON 12/09/20 Multivitamins (Thera M Plus Tablet) 1 Each Tablet, 1 TAB PO DAILY [place]-3 Fatty Acids/Fish Oil (Fish Oil 1,000 mg Capsule) 1 Each Capsule, 1,000 MG PO DAILY Allergies Coded Allergies: Sulfa (Sulfonamide Antibiotics) (Verified Allergy, Intermediate, Hives, 12/09/20) SULAIMAN KELLEY MD Dec 10, 2020 02:22
[2020-12-10] MEDS ORDERED: VANCOMYCIN HCL 1,000 MG, VIAL MATE ADAPTER 1 EACH in NS 250 ML IV SCH (03:15)
--- OUTSIDE RECORDS SUMMARY | 2020-12-10 03:26 | CCD ---
Author Author [facility] Organization [facility] Address Unknown Phone Unavailable Care Team Providers Care K 12 Principal Name Role Phone Maria Victoria Noland MD [...] Canales MD Unavailable Unavailable Nuzhat, Maria Victoria Caanles MD Unavailable Unavailable Nuzhat, Maria Victoria Canales [...] A Parker MD Unavailable Unavailable Nuzhat, A Parkre MD Unavailable Unavailable Nuzhat, A Parker MD [...] is protected by Article 27-F of the [place] Public Health law. If you continue you may have access to information: Regarding HIV / AIDS; Provided by facilities licensed or operated by the [place] Office of Mental Health; or Provided by the [place] Office for People With Developmental Disabilities. If such information is present, then the following [place] mandated warning applies: This information has been [...] law may result in a fine or mcc sentence or both. A general authorization for [...] ([facility]) [place] [address] [facility] [address] 04/29/2020 12:00:00 AM EDT eCW1 ([facility]) Outpatient Admitter: Parker Noland MDReferrer: Parker Noland MD MOB-MOB.PAT 04/08/2020 08:07:07 AM EST - 04/08/2020 08:22:51 AM EST [facility] Outpatient Attender: Parker Harmon rona: Nancy Zhang MDAdmitter: Parker Noland MD [email or web address].[email or web address] 04/03/2020 08:05:11 AM EST - 04/12/2020 01:48:00 PM EST [facility] Patient discharged. Outpatient Attender: Parker Begum 03/29/2020 02:00:00 P M EST MED[facility] ([facility]) Unknown [address] [facility] [address] 03/26/2020 12:00:00 AM EST eCW1 ([facility]) Unknown [address] [facility] [facility] [address] 02/12/2020 12:00:00 AM EST eCW1 ([facility]) [place] [address] [facility] [facility] [address] 01/31/2020 12:00:00 AM EST eCW1 ([facility]) Immunizations Vaccine Date Status Description Data Source(s) COVID-19 VACCINE [employer] 05/15/2020 12:00:00 AM EDT completed [facility] Vaccine Series Complete: YESThis Data wa s Submitted to [facility] Via KO-SU. COVID-19 VACCINE Pfizer 04/24/2020 12:00:00 AM EST completed [facility]SIIS Vaccine Series Complete: NOThis Data was Submitted to [facility] Via KO-SU. Medications Medication Brand Name Start Date Product [...] 4 WEEKS FOR TINEA CORPORIS SOLD: 08/01/2020 [facility] Diazepam 5 MG Oral Tablet [Valium] Valium 07/04/2020 12:00:00 AM EDT ORAL active [facility] ([facility] 5 mg 07/04/2020 12:00:00 AM EDT tablet 30 TAKE ONE TABLET FOR PAIN EVERY NIGHT AT BEDTIME MAXIMUM DAILY DOSE = 1 TAKE ONE TABLET FOR PAIN EVERY NIGHT AT BEDTIME MAXIMUM DAILY DOSE = 1 SOLD: 07/05/2020 [facility] Multi Vitamin 04/24/2020 12:00:00 AM EST acti ve MEDENT ([facility]) Cholecalciferol 2000 UNT Oral Tablet Vitamin D 04/24/2020 12:00:00 AM EST active [facility] ([facility]) Atenolol 25 MG Oral Tablet ATENOLOL 04/16/2020 12:00:00 AM EST tablet 90 TAKE ONE TABLET BY MOUTH EVERY DAY TAKE ONE TABLET BY MOUTH EVERY DAY SOLD: 04/21/2020 [facility] Atenolol 25 MG Oral Tablet ATENOLOL 04/16/2020 12:00:00 AM EST tablet 90 TAKE ONE TABLET BY MOUTH EVERY DAY TAKE ONE TABLET BY MOUTH EVERY DAY SOLD: 07/18/2020 [facility] 140-9-5.2 gram 03/30/2020 12:00:00 AM EST powder in packet, sequential 3 DO NOT FOLLOW DIRECTIONS ON BOX - FOLLOW DIRECTIONS GIVEN BY OFFICE DO NOT FOLLOW DIRECTIONS ON BOX - FOLLOW DIRECTIONS GIVEN BY DR DUMONT SOLD: 04/05/2020 [facility] Plenvu Plenvu 03/29/2020 12:00:00 AM EST active MEDENT ([facility]) 25 mg 11/01/2019 12:00:00 AM EDT tablet 90 TAKE ONE TABLET BY MOUTH EVERY DAY TAKE ONE TABLET BY MOUTH EVERY DAY SOLD: 01/19/2020 [facility] 25 mg 11/01/2019 12:00:00 AM EDT tablet 90 TAKE ONE TABLET BY MOUTH EVERY DAY TAKE ONE TABLET BY MOUTH EVERY DAY SOLD: 11/06/2019 [employer] Insurance Providers Payer name Policy type / Coverage type Policy ID Covered libertarian ID Covered libertarian's relationship to fuentes Policy Fuentes Plan Information [employer]/307 [id number] SP [id number] EXCELLUS H [id number] Self [id number] [place]/307 [id number] SP [id number] [place]/307 [id number] SP [id number] [place]/307 [id number] SP [id number] BC EXC PLANS 1 [id number] EXCELLUS BCBS [id number] Shereen VYS EXCELLUS BCBS [id number] Shereen VYS EXCELLUS BCBS [id number] Shereen VYS [id number] EXCELLUS BCBS [id number] Shereen VYA [id number] EXCELLUS H [id number] Self [id number] EXCELLUS BCBS [id number] Shereen VYA [id number] EXCELLUS BCBS [id number] [phone] [id number] EXCELLUS BCBS [id number] Shereen VYA [id number] INSURANCE COVID-19 [id number] [id number] INSURANCE COVID-19 COVID Shereen C OVID [id number] [employer] [id number] SP [id number] [employer] [place] 302/307 [id number] SP [id number] [place] [place] 302/307 [id number] SP [id number] EXCELLUS BCBS B [id number] S VYA [id number] BCBS/[employer] Commercial [id number] Self [id number] SELF PAY 2 UNAVAILABLE 1 UNAVAILA BLE HMO BLUE [id number] SP [id number] [employer]BS [place] PPO 302/307 [id number] SP [id number] Problems, Conditions, and Diagnoses Code Display Name Description Problem Type Effective Dates Data Source(s) Z86.010 Personal history of colonic polyps Personal hist ory of colonic polyps Diagnosis 04/12/2020 10:59:00 AM EST [facility] U07.1 COVID-19 COVID-19 Diagnosis 04/08/2020 08:07:07 AM ES T [facility] N50.3 Epididymal cyst Epididymal cyst Problem 04/29/2020 12:0 0:00 AM EDT eCW1 ([facility]) N50.89 Other specified disorders of the male ge nital organs Testicular calcification Problem 04/29/2020 12:00:00 AM EDT eCW1 ([facility]) [id number] Essential hypertension Essential hypertension Problem 04/24/2020 12:00:00 [...] [facility]) Results ID Date Data Source [id number] 04/19/2020 06:25:27 AM EST [facility] [place], [place] [address]Tel# Surgical Pathology ReportPatient Name: KEI THOMPSON: 1965Accession [...] 04/19/2020Electronically Signed Out By Cathy Flores M.D. [facility] [place] [address] [id number] component performed at [facility] [employer] [facility], Histopathology, [address] [place] [address], [phone].Reported at [facility] [place], [address] [place] [address], [phone]. This report may includeimmunohistochemical or in-situ hybridization results. Testing wasdeveloped and the performance characteristics determined by [employer] as required by CLIA '88. The FDA hasdetermined that approval for specific use is not necessary for clinicaluse. The quality of Hematoxylin and Eosin stains and as applicable, forall immunohistochemical and/or special stains, including positive andnegative controls, were reviewed and considered appropriate.ICD codes K63.5CPT codesA: 23292XS: 06008R Name Value Range Interpretation Code Description Data Priya rce(s) Supporting Document(s) ID Date Data Source [id number] 04/12/2020 12:53:09 PM EST [facility] INFORMATIONPatient MRN Name Date of Age Gend*PT [id number] Kei Thompson 1965 54 years M OPPT Location Admission Date/Time Visit ID Attending ProviderEndo [place] 04/12/20 1059 --- Parker Noland MD([id number]) EPI ID [facility] Admitting Provider [id number] Parker Noland MD([id number])Colonoscopy Procedure NotePatient: Kei ThompsonSurgerdb Date: 04/12/2020urgeon(s):Parker Noland [...] rce(s) Supporting Document(s) ID Date Data Source [id number] 04/11/2020 12:00:00 AM EST [facility] Patricia Truong Np Patient Name: KEI THOMPSON[address] Date of : 1965[address] [facility]: [facility] [id number] Fax: [phone] EXAM: US SCROTUM & CONTENTSCLINICAL [...] bothmeasuring 9 mm in diameter.Accredited by the [employer] in General Ultrasound.FABIENNE Alcala/Ilya you for referring KEI THOMPSON to our office. Electronically Signed - RIKI DAMON MD 04/11/20 13:02 Name Value Range Interpretation Code Description Data Priya rce(s) Supporting Document(s) ID Date Data Source [id number] 04/08/2020 08:40:00 AM EST [facility] Name Value Range Interpretation Code Description Data Priya rce(s) Supporting Document(s) SARS coronavirus 2 RNA Not Detected [facility] This lab was ordered by [facility] and reported by [facility]. ID Date Data Source [id number] 04/09/2020 06:09:38 PM EST [facility] Name Value Range Interpretation Code Description Data Priya rce(s) Supporting Document(s) SARS-COV-2 [facility] [employer] Not DetectedReference range: Not Detecte d This nucleic acid amplification test was developed and its performance characteristics determined by [facility]. Nucleic acid amplification tests include RT-PCR and [...] detected) result in this assay. Performed At: [facility] [place], [place] [id number] Omar Irene PhD Ph:[phone] ID Date Data Source LDH LACTATE DEHYDROGENASE 02/01/2020 12:00:00 AM EST eCW1 ([facility]) Name Value Range Interpretation Code Description Data Priya rce(s) Supporting Document(s) [id number] LDH LACTATE DEHYDROGENASE eCW1 ([facility]) ID Date Data Source ALPHA FETOPROTEIN TUMOR QUANT 02/01/2020 12:00:00 AM EST eCW 1 ([facility]) Name Value Range Interpretation Code Description Data Priya rce(s) Supporting Document(s) 5.2 <8.1 ALPHA FETOPROTEIN TUMOR Q UANT eCW1 ([facility]) ID Date Data Source [id number] 12/21/2019 12:00:00 AM EST [facility] Raheem Mcdonnell MD Patient Name: CHANCE THOMPSON [facility] Date of : 1965[address] Date of Exam: 12/21/2019RENETTA Garcia [id number]#: Fax: [phone] EXAM: US SCROTUM & CONTENTSCLINICAL [...] varicocele and indeterminate possibleright-sided varicocele.Accredited by the [employer] in General Ultrasound.ZA Bonner/Ilya you for referring KEI THOMPSON to our office. Electronically Signed - MARCO A WAGNER DO 12/22/19 17:07 Name Value Range Interpretation Code Description Data Priya rce(s) Supporting Document(s) Procedure Social History Code Duration Value Status Description Data Source(s ) Smoking 04/29/2020 12:00:00 AM EDT Never Smoker completed Never S jose eCW1 ([facility]) Alcohol intake 04/12/2020 12:00:00 AM EST Yes completed [facility] Smoking 04/12/2020 12:00:00 AM EST Never smoker completed Never s jose [facility] Smoking 01/31/2020 12:00:00 AM EST Never Smoker completed Never S moker eCW1 ([facility]) Smoking 01/31/2020 12:00:00 AM EST Never Smoker completed Never S moker eCW1 ([facility]) Smoking 01/31/2020 12:00:00 AM EST Never Smoker completed Never S moker eCW1 ([facility]) Vital Signs ID Date Data Source [...] Body weight 253 [lb_av] 253 [lb_av] eCW1 ([facility]) Body height 70 [in_i] 70 [in_i] eCW1 ([facility]) Body mass index (BMI) [Ratio] 36.30 kg/m2 36.30 kg/m2 eCW1 ([facility]) Heart rate 68 /min 68 /min eCW1 ([facility]) Respiratory rate 18 /min 18 /min eCW1 ([facility]) Body temperature 98.5 [degF] 98.5 [degF] eCW1 ( [facility]) Systolic blood pressure 126 mm[Hg] 126 mm[Hg] e CW1 ([facility]) Diastolic blood pressure 88 mm[Hg] 88 mm[Hg] eCW1 ([facility]) Systolic blood pressure 146 mm[Hg] 146 mm[Hg] [facility] Diastolic blood pressure 87 mm[Hg] 87 mm[Hg] [facility] Body temperature 36.5 Zunilda 36.5 Zunilda [facility] Respiratory rate 16 /min 16 /min [facility] Oxygen saturation in Arterial blood by Pulse oximetry 99 % 99 % [facility] Body mass index (BMI) [Ratio] 35.15 kg/m2 35.15 kg/m2 [facility] Heart rate 67 /min 67 /min [facility] Body height 177.8 cm 177.8 cm [facility] Body weight 111.131 kg 111.131 kg [facility] Body temperature 97.8 [degF] 97.8 [degF] [...] Body weight 250 [lb_av] 250 [lb_av] eCW1 ([facility]) Body height 70 [in_i] 70 [in_i] eCW1 ([facility]) Body mass index (BMI) [Ratio] 35.87 kg/m2 35.87 kg/m2 eCW1 ([facility]) Heart rate 18 /min 18 /min eCW1 ([facility]) Respiratory rate 69 /min 69 /min eCW1 ([facility]) Body temperature 96.8 [degF] 96.8 [degF] eCW1 ( [facility]) Systolic blood pressure 132 mm[Hg] 132 mm[Hg] e CW1 ([facility]) Diastolic blood pressure 86 mm[Hg] 86 mm[Hg] eCW1 ([facility])
[2020-12-10 03:30] VITALS: BP 111/78
[2020-12-10] MEDS: NS 1,000 ML IV SCH ×2 (03:42→12:55)
[2020-12-10 06:00] VITALS: BP 106/61
[2020-12-10 06:22] LABS: BASO % 0.4 % (0.0-1.0); EOS # 0.1 10^3/uL (0.0-0.5); EOS % 1.3 % (0.0-3.0); HEMATOCRIT 41.5 % (42.0-52.0); HEMOGLOBIN 14.6 g/dl (13.5-17.5); LYMPH % 18.4 % (24.0-44.0); MEAN CORPUSCULAR HEMOGLOBIN 31.9 pg (27.0-33.0); MEAN CORPUSCULAR HGB CONC 35.2 g/dl (32.0-36.5); MEAN CORPUSCULAR VOLUME 90.8 fl (80.0-96.0); MONO # 1.1 10^3/uL (0.0-0.8); MONO % 10.4 % (2.0-8.0); NEUTROPHILS # 7.5 10^3/uL (1.5-8.5); NEUTROPHILS % 69.1 % (36.0-66.0); PLATELET COUNT, AUTOMATED 209 10^3/uL (150-450); RED BLOOD COUNT 4.57 10^6/uL (4.30-6.10); WHITE BLOOD COUNT 10.8 10^3/uL (4.0-10.0)
[2020-12-10 06:38] LABS: BLOOD UREA NITROGEN 12 MG/DL (7-18); CALCIUM LEVEL 8.4 MG/DL (8.5-10.1); CARBON DIOXIDE LEVEL 27 MEQ/L (21-32); CHLORIDE LEVEL 108 MEQ/L (98-107); CREATININE FOR GFR 1.03 MG/DL (0.70-1.30); GLOMERULAR FILTRATION RATE > 60.0 (>56); GLUCOSE, FASTING 141 MG/DL (70-100); POTASSIUM SERUM 3.8 MEQ/L (3.5-5.1); SODIUM LEVEL 140 MEQ/L (136-145)
[2020-12-10] MEDS: ceFAZolin SOD 2 GM in IV 1 EA IV SCH ×3 (06:42→22:11)
[2020-12-10] MEDS: ENOXAPARIN 40MG/0.4ML SYRINGE (J1650 PER 10MG) SC SCH (09:10)
[2020-12-10] MEDS: VANCOMYCIN HCL 1,000 MG, VIAL MATE ADAPTER 1 EACH in NS 250 ML IV SCH ×2 (12:55→20:27)
[2020-12-10 14:00] VITALS: BP 108/78
[2020-12-10] MEDS ORDERED: SENOKOT S TAB PO PRN (19:10)
[2020-12-10] MEDS ORDERED: MORPHINE 30 MG TAB **MSIR PO PRN (19:10)
[2020-12-10] MEDS ORDERED: PILL CUTTER 1 EACH XX PRN (19:15)
[2020-12-10] MEDS: ACETAMINOPHEN 500 MG TAB PO SCH (20:28)
[2020-12-10] MEDS: KETOROLAC 30 MG/ML 1ML VIAL IV SCH (20:28)
[2020-12-10 20:29] VITALS: BP 140/90
[2020-12-10] MEDS: MORPHINE 15 MG SA TAB PO SCH (20:29)
[2020-12-10] MEDS ORDERED: atenoloL 25 MG TAB PO SCH (21:00)
[2020-12-10 22:00] VITALS: BP 140/90
[2020-12-11] MEDS: NS 1,000 ML IV SCH ×3 (01:19→15:05)
[2020-12-11] MEDS: KETOROLAC 30 MG/ML 1ML VIAL IV SCH ×3 (01:22→14:06)
[2020-12-11 05:39] LABS: BASO % 0.4 % (0.0-1.0); EOS # 0.2 10^3/uL (0.0-0.5); EOS % 2.1 % (0.0-3.0); HEMATOCRIT 39.4 % (42.0-52.0); HEMOGLOBIN 13.4 g/dl (13.5-17.5); LYMPH % 24.5 % (24.0-44.0); MEAN CORPUSCULAR HEMOGLOBIN 31.5 pg (27.0-33.0); MEAN CORPUSCULAR VOLUME 92.5 fl (80.0-96.0); MONO # 0.9 10^3/uL (0.0-0.8); MONO % 10.9 % (2.0-8.0); NEUTROPHILS # 5.1 10^3/uL (1.5-8.5); NEUTROPHILS % 61.6 % (36.0-66.0); PLATELET COUNT, AUTOMATED 177 10^3/uL (150-450); RED BLOOD COUNT 4.26 10^6/uL (4.30-6.10); WHITE BLOOD COUNT 8.3 10^3/uL (4.0-10.0)
[2020-12-11 06:00] VITALS: BP 110/59
[2020-12-11 06:05] LABS: BLOOD UREA NITROGEN 13 MG/DL (7-18); CARBON DIOXIDE LEVEL 27 MEQ/L (21-32); CHLORIDE LEVEL 113 MEQ/L (98-107); CREATININE FOR GFR 1.06 MG/DL (0.70-1.30); GLOMERULAR FILTRATION RATE > 60.0 (>56); GLUCOSE, FASTING 108 MG/DL (70-100); POTASSIUM SERUM 3.9 MEQ/L (3.5-5.1); SODIUM LEVEL 143 MEQ/L (136-145)
[2020-12-11] MEDS: VANCOMYCIN HCL 1,000 MG, VIAL MATE ADAPTER 1 EACH in NS 250 ML IV SCH ×2 (06:31→12:46)
[2020-12-11] MEDS: ceFAZolin SOD 2 GM in IV 1 EA IV SCH ×2 (08:23→14:06)
[2020-12-11] MEDS: ACETAMINOPHEN 500 MG TAB PO SCH ×2 (08:26→16:00)
[2020-12-11] MEDS: ENOXAPARIN 40MG/0.4ML SYRINGE (J1650 PER 10MG) SC SCH (08:28)
[2020-12-11] MEDS: MORPHINE 15 MG SA TAB PO SCH (08:28)
[2020-12-11] MEDS ORDERED: FLUBLOK(EGG FREE)(QUAD)INFLUENZA VACC 0.5ML SYRINGE 18YRS & OLDER IM ONE (09:00)
[2020-12-11] MEDS ORDERED: AUGM875T28 PO (09:51)
--- NOTE | 2020-12-11 15:29 | DS.PDOC ---
Discharge Summary General Date of Admission Dec 10, 2020 at 02:49 Date of Discharge 12/11/20 Discharge Summary Discharge summary dictated job #[id number] Vital Signs/I&Os Vital Signs Date Time Temp Pulse Resp B/P (MAP) Pulse Ox O2 Delivery O2 Flow Rate FiO2 12/11/20 08:28 18 Room Air 12/11/20 06:00 98.3 60 110/59 (76) 98 I&O- Last 24 Hours up to 6 AM 12/11/20 05:59 Intake Total 2090 ml Output Total 2600 ml Balance -510 ml Laboratory Data Labs 24H Laboratory Tests 2 12/11/20 05:25: Immature Granulocyte % (Auto) 0.5, Neutrophils (%) (Auto) 61.6, Lymphocytes (%) (Auto) 24.5, Monocytes (%) (Auto) 10.9H, Eosinophils (%) (Auto) 2.1, Basophils (%) (Auto) 0.4, Neutrophils # (Auto) 5.1, Lymphocytes # (Auto) 2.0, Monocytes # (Auto) 0.9H, Eosinophils # (Auto) 0.2, Basophils # (Auto) 0.0, Nucleated Red Blood Cells % (auto) 0.0, Anion Gap 3L, Glomerular Filtration Rate > 60.0, Calcium Level 8.0L, Vancomycin Level Trough 11.5 12/11/20 13:06: CBC/BMP Laboratory Tests 12/11/20 05:25 Microbiology Microbiology 12/09/20 Blood Culture - Preliminary, Resulted No growth after 24 hours . All specim... 12/09/20 Blood Culture - Preliminary, Resulted No growth after 24 hours . All specim... Discharge Medications Scheduled Amoxicillin/Potassium Clav (Augmentin 875-125 Tablet) 1 Each Tablet, 1 TAB PO BID Atenolol (Atenolol) 25 Mg Tablet, 25 MG PO QHS, (Reported) Cholecalciferol (Vitamin D3) (Vitamin D3) 1,000 Unit Tablet, 1,000 UNITS PO DAILY, (Reported) Doxycycline Monohydrate (Doxycycline Monohydrate) 100 Mg Tablet, 100 MG PO BID, (Reported) STARTED ON 12/09/20 Multivitamins (Thera M Plus Tablet) 1 Each Tablet, 1 TAB PO DAILY, (Reported) [place]-3 Fatty Acids/Fish Oil (Fish Oil 1,000 mg Capsule) 1 Each Capsule, 1,000 MG PO DAILY, (Reported) Allergies Coded Allergies: Sulfa (Sulfonamide Antibiotics) (Verified Allergy, Intermediate, Hives, 12/09/20) CASSIE ISLAS MD Dec 11, 2020 15:29
--- NOTE | 2020-12-12 10:27 | DSES ---
DISCHARGE SUMMARY DATE OF ADMISSION: 12/10/2020 DATE OF DISCHARGE: 12/11/2020 ORTHOPEDIC SURGEON FIRE PROTECTION DESIGNER: Avila Alcantar MD. PROCEDURES PERFORMED: None. PRIMARY DISCHARGE DIAGNOSES: 1. Left elbow cellulitis with possible infected olecranon bursa. 2. Left upper extremity abscess. 3. Hypertension. 4. Obesity - BMI of 33.9. DISCHARGE MEDICATIONS: 1. Augmentin 875/125, 1 tablet twice a day. 2. Dalvance 1.5 gram infusion as outpatient after hospital discharge. 3. Atenolol 25 at bedtime. 4. Vitamin D 1000 units daily. 5. Doxycycline 100 twice a day. 6. Multivitamin 1 tablet daily. 7. [place] 3 fatty acid 1 gram daily. DISCHARGE INSTRUCTIONS: Infusion Unit at [facility] on 12/12/2020 for 12:00 noon infusion of Dalvance 1.5 grams I.V. times 1 for skin abscess/left upper extremity cellulitis. HISTORY AND HOSPITAL COURSE: This 55-year-old male with history of hypertension, obesity presented to the Emergency Room with a 2 week history of worsening left elbow pain status post traumatic injury with abrasions, noted swelling and worsening, unable to flex and extend due to edema, pain and redness. Ultrasound revealed a 3.6 x 1.5 x 3.5 fluid collection posterior to the left elbow representing abscess of hematoma or possible olecranon bursitis. Orthopedic surgeon Dr. Alcantar was consulted. No fluid could be drained at that time. Patient was treated with I.V. vancomycin and cefazolin. Patient's initial white blood cell count was 12.9 and normalized after 3 days of I.V. antibiotics to 8.3. Patient was afebrile at 99.5 on arrival. Patient had significant pain and was given Tylenol 1 gram three times a day and Toradol 30 mg I.V. q6h with I.V. fluid 100 mL per hour. Patient's blood pressure was stable at 110-140 systolic. Pain was treated with as needed morphine sulfate 15 mg every 4 hours. Patient had no other issues and discharged in stable condition. PHYSICAL EXAMINATION ON DISCHARGE: Vital signs: Temperature 98.3, pulse 60, respiratory rate 16, blood pressure 110/59, 98% on room air. General: Awake, alert, oriented to person, place and time, answering questions appropriately. HEENT: Moist mucous membranes. Neck: No JVD, no thyromegaly, no cervical lymphadenopathy. Lungs: Clear to auscultation, no wheezes, rhonchi or rales. Heart: S1 and S2 sinus rhythm. Abdomen: Soft, nontender, nondistended, positive bowel sounds. Extremities: No pitting edema bilaterally in lower extremities. Left elbow has significant improvement in the induration, erythema and tenderness. He is able to flex and extend at the elbow with no difficulty. Muscle strength is 5/5 bilateral upper extremities. LABORATORY DATA/IMAGING STUDIES/MICROBIOLOGY: All have been reviewed. Please see the chart. Time spent on discharge: Thirty minutes
== END 2020-12-11 16:32 | disposition home or self-care (01) | DRG 383 ==
LOC: M ED 22:29 → M MSPAV 12-10 02:49 → M ED 12-10 03:02
PROVIDERS: ADMIT Family Medicine; ATTEND General Practice
DX: L03.114 Cellulitis of left upper limb (principal); I10 Essential (primary) hypertension; E66.9 Obesity, unspecified; Z68.33 Body mass index [BMI] 33.0-33.9, adult; L02.414 Cutaneous abscess of left upper limb; M70.22 Olecranon bursitis, left elbow; Z90.49 Acquired absence of other specified parts of digestive tract; Z88.2 Allergy status to sulfonamides

== ENCOUNTER 2020-12-12 11:46 | Outpatient (CLI) | payer BC ==
[~2020-12-12] VITALS: Ht 208.3 cm; Wt 107.2 kg
[~2020-12-12 11:46] MED LIST changes: +ATEN25TA PO; +AUGM875T28 PO; +D31000TA2 PO; +DOXY100T27 PO; +FISH1000 PO; +VITMTA PO
[2020-12-12 11:50] VITALS: BP 175/89
[2020-12-12] MEDS ORDERED: DALBAVANCIN 1,500 MG in D5W 250 ML IV ONE (12:00)
[2020-12-12 14:07] VITALS: BP 146/83
[2020-12-12 14:30] VITALS: BP 142/80
== END 2020-12-12 14:30 | disposition home or self-care (01) ==
LOC: M INFU 11:46
PROVIDERS: ATTEND General Practice
DX: L02.414 Cutaneous abscess of left upper limb (principal); Z88.2 Allergy status to sulfonamides
CPT/HCPCS: 96365; J0875

== ENCOUNTER → 2022-02-13 | Outpatient (CLI) | payer BC ==
[~2022-02-13] MED LIST changes: -D31000TA2 PO; +VITA100093 PO
[2022-02-13 16:54] LABS: ALBUMIN 3.8 G/DL (3.2-5.2); ALKALINE PHOSPHATASE 89 U/L (46-116); ALT/SGPT 29 U/L (7.0-40); AST/SGOT 31 U/L (<34); BILIRUBIN,TOTAL 1.1 MG/DL (0.3-1.2); BLOOD UREA NITROGEN 23 MG/DL (9-23); CALCIUM LEVEL 9.3 MG/DL (8.5-10.1); CARBON DIOXIDE LEVEL 30 MMOL/L (20-31); CHLORIDE LEVEL 104 MMOL/L (98-107); CHOLESTEROL LEVEL 216 MG/DL (<200); CHOLESTEROL RISK RATIO 3.95 (<5); CREATININE FOR GFR 1.03 MG/DL (0.70-1.30); GLOMERULAR FILTRATION RATE > 60.0 (>56); GLUCOSE, FASTING 98 MG/DL (60-100); HDL CHOLESTEROL 54.6 MG/DL (>40); LDL CHOLESTEROL 122.2 MG/DL (<100); NON-HDL-C 161 MG/DL; POTASSIUM SERUM 4.4 MMOL/L (3.5-5.1); SODIUM LEVEL 141 MMOL/L (136-145); TOTAL PROTEIN 6.8 G/DL (5.7-8.2); TRIGLYCERIDES LEVEL 196 MG/DL (<150)
[2022-02-13 17:04] LABS: BASO % 0.5 % (0.0-1.0); EOS # 0.1 10^3/uL (0.0-0.5); EOS % 1.2 % (0.0-3.0); HEMATOCRIT 48.6 % (42.0-52.0); LYMPH # 2.5 10^3/uL (1.5-5.0); LYMPH % 29.9 % (24.0-44.0); MEAN CORPUSCULAR HEMOGLOBIN 30.8 pg (27.0-33.0); MEAN CORPUSCULAR HGB CONC 32.9 g/dl (32.0-36.5); MEAN CORPUSCULAR VOLUME 93.6 fl (80.0-96.0); MONO # 0.6 10^3/uL (0.0-0.8); MONO % 7.5 % (2.0-8.0); NEUTROPHILS # 4.9 10^3/uL (1.5-8.5); NEUTROPHILS % 59.9 % (36.0-66.0); PLATELET COUNT, AUTOMATED 225 10^3/uL (150-450); RED BLOOD COUNT 5.19 10^6/uL (4.30-6.10); WHITE BLOOD COUNT 8.2 10^3/uL (4.0-10.0)
== END ==
LOC: M WUC 11:09
PROVIDERS: ATTEND Family Medicine
DX: Z00.00 Encounter for general adult medical examination without abnormal findings (principal); Z12.5 Encounter for screening for malignant neoplasm of prostate
CPT/HCPCS: 36415; 80053; 80061; 85025; G0103

== ENCOUNTER → 2023-05-03 | Outpatient (CLI) | payer OTHER ==
[2023-05-03 09:59] LABS: BASO # 0.1 10^3/uL (0.0-0.2); BASO % 0.7 % (0.0-1.0); EOS # 0.1 10^3/uL (0.0-0.5); EOS % 1.6 % (0.0-3.0); HEMATOCRIT 45.3 % (42.0-52.0); HEMOGLOBIN 15.6 g/dl (13.5-17.5); LYMPH # 2.6 10^3/uL (1.5-5.0); LYMPH % 36.7 % (24.0-44.0); MEAN CORPUSCULAR HEMOGLOBIN 31.6 pg (27.0-33.0); MEAN CORPUSCULAR HGB CONC 34.4 g/dl (32.0-36.5); MEAN CORPUSCULAR VOLUME 91.7 fl (80.0-96.0); MONO # 0.6 10^3/uL (0.0-0.8); MONO % 7.8 % (2.0-8.0); NEUTROPHILS # 3.7 10^3/uL (1.5-8.5); NEUTROPHILS % 52.8 % (36.0-66.0); PLATELET COUNT, AUTOMATED 249 10^3/uL (150-450); RED BLOOD COUNT 4.94 10^6/uL (4.30-6.10); WHITE BLOOD COUNT 7.1 10^3/uL (4.0-10.0)
[2023-05-03 10:42] LABS: ALBUMIN 3.9 G/DL (3.2-5.2); ALKALINE PHOSPHATASE 73 U/L (46-116); ALT/SGPT 49 U/L (7.0-40); AST/SGOT 29 U/L (<34); BILIRUBIN,TOTAL 1.7 MG/DL (0.3-1.2); BLOOD UREA NITROGEN 22 MG/DL (9-23); CALCIUM LEVEL 9.3 MG/DL (8.5-10.1); CARBON DIOXIDE LEVEL 28 MMOL/L (20-31); CHLORIDE LEVEL 107 MMOL/L (98-107); CHOLESTEROL LEVEL 199 MG/DL (<200); CHOLESTEROL RISK RATIO 4.81 (<5); CREATININE FOR GFR 1.06 MG/DL (0.70-1.30); GLOMERULAR FILTRATION RATE > 60.0 (>56); GLUCOSE, FASTING 111 MG/DL (60-100); HDL CHOLESTEROL 41.3 MG/DL (>40); LDL CHOLESTEROL 130.9 MG/DL (<100); NON-HDL-C 157.7 MG/DL; POTASSIUM SERUM 4.1 MMOL/L (3.5-5.1); PROSTATIC SPECIFIC AG MONITOR 0.55 NG/ML (< 4.00); SODIUM LEVEL 140 MMOL/L (136-145); TOTAL PROTEIN 6.6 G/DL (5.7-8.2); TRIGLYCERIDES LEVEL 134 MG/DL (<150)
== END ==
LOC: M WUC 08:11
PROVIDERS: ATTEND Family Medicine
DX: Z00.00 Encounter for general adult medical examination without abnormal findings (principal); Z12.5 Encounter for screening for malignant neoplasm of prostate

== ENCOUNTER → 2024-02-07 | Outpatient (REF) | payer OTHER ==
[~2024-02-07] MED LIST changes: +DOXY-441 PO; -DOXY-443 PO
[2024-02-07 13:44] LABS: BASO # 0.1 10^3/uL (0.0-0.2); BASO % 0.9 % (0.0-1.0); EOS # 0.2 10^3/uL (0.0-0.5); EOS % 2.5 % (0.0-3.0); HEMOGLOBIN 15.2 g/dl (13.5-17.5); LYMPH # 2.8 10^3/uL (1.5-5.0); LYMPH % 35.1 % (24.0-44.0); MEAN CORPUSCULAR HEMOGLOBIN 31.7 pg (27.0-33.0); MEAN CORPUSCULAR HGB CONC 33.8 g/dl (32.0-36.5); MEAN CORPUSCULAR VOLUME 93.8 fl (80.0-96.0); MONO # 0.6 10^3/uL (0.0-0.8); MONO % 7.3 % (2.0-8.0); NEUTROPHILS # 4.3 10^3/uL (1.5-8.5); PLATELET COUNT, AUTOMATED 232 10^3/uL (150-450)
[2024-02-07 14:15] LABS: ALBUMIN 3.5 G/DL (3.2-5.2); ALKALINE PHOSPHATASE 94 U/L (40-129); ALT/SGPT 80 U/L (7.0-40); AST/SGOT 44 U/L (<34); BILIRUBIN,TOTAL 0.8 MG/DL (0.3-1.2); BLOOD UREA NITROGEN 19 MG/DL (9-23); CALCIUM LEVEL 9.2 MG/DL (8.5-10.1); CARBON DIOXIDE LEVEL 28 MMOL/L (20-31); CHLORIDE LEVEL 108 MMOL/L (98-107); CHOLESTEROL LEVEL 197 MG/DL (<200); CHOLESTEROL RISK RATIO 4.63 (<5); CREATININE FOR GFR 1.09 MG/DL (0.70-1.30); GLOMERULAR FILTRATION RATE > 60.0 (>56); GLUCOSE, FASTING 110 MG/DL (60-100); HDL CHOLESTEROL 42.5 MG/DL (>40); LDL CHOLESTEROL 122.9 MG/DL (<100); NON-HDL-C 154.5 MG/DL; POTASSIUM SERUM 4.5 MMOL/L (3.5-5.1); SODIUM LEVEL 144 MMOL/L (136-145); TOTAL PROTEIN 6.6 G/DL (5.7-8.2); TRIGLYCERIDES LEVEL 158 MG/DL (<150)
[2024-02-07 14:19] LABS: THYROID STIMULATING HORMONE 2.384 uIU/ML (0.55-4.78)
== END ==
LOC: M LABDRWAD 12:57
PROVIDERS: ATTEND Family Medicine
DX: Z00.00 Encounter for general adult medical examination without abnormal findings (principal); E66.3 Overweight